=== PATIENT | male | born 1990 | race Caucasian/White ===

== ENCOUNTER 2021-05-31 15:25 | Emergency (ER) | payer OTHER, SELFPAY ==
--- NOTE | 2021-05-31 | ECG_ITS ---
Test Reason : CHEST PAIN Blood Pressure : / mmHG Vent. Rate : 059 BPM Atrial Rate : 059 BPM P-R Int : 156 ms QRS Dur : 100 ms QT Int : 404 ms P-R-T Axes : 055 048 023 degrees QTc Int : 399 ms Sinus bradycardia Otherwise normal ECG When compared with ECG of 03-OCT-2016 01:39, No significant change was found Referred By: Generic ED Physician Electronically Signed By:ISABEL SORIANO
--- NOTE | ~2021-05-31 | XR_ITS ---
EXAMINATION: XR CHEST CLINICAL INFORMATION: Chest pain. COMPARISON: Chest done on 10/02/2016. TECHNIQUE: Frontal view of the chest was obtained. FINDINGS: No significant abnormality is noted involving the heart, lungs, mediastinum, bony thorax or soft tissues. XR/XR chest 1V IMPRESSION: Unremarkable examination. Resolution of previously documented left lower lobar airspace disease and trace superimposed effusion since the prior study dated 10/02/2016.
[2021-05-31 15:32] VITALS: BP 144/82; PULSE 64; RESP 16; TEMP 36.7; O2SAT 98; BMI 30.1
[2021-05-31 16:45] LABS: MANUAL DIFF FLAG NO
[2021-05-31 16:48] LABS: Basophils Percent Auto 0.6 % (0-2); Eosinophils Absolute Auto 0.2 X10*3/uL (0.0-0.4); Eosinophils Percent Auto 3.8 % (0-4); Hematocrit 38.6 % (42-52); Hemoglobin 12.3 g/dl (14.0-18.0); Imm Gran Abs Auto 0.02 X10*3/uL (0.00-0.03); Imm Gran Pct Auto 0.4 % (0.0-0.4); Lymphocytes Absolute Auto 2.2 X10*3/uL (1.2-4.9); Mean Corpuscular HGB Conc 31.9 g/dl (31.0-36.0); Mean Corpuscular Hemoglobin 27.5 pg (27.0-33.0); Mean Corpuscular Volume 86.2 fL (80-98); Mean Platelet Volume 9.2 fL (9.4-12.4); Monocytes Absolute Auto 0.4 X10*3/uL (0.1-1.2); Monocytes Percent Auto 7.9 % (2-11); Neutrophils Percent Auto 42.3 % (45-73); Platelet Count 235 X10*3/uL (160-400); Red Blood Count 4.48 X10*6/uL (4.60-5.80); White Blood Count 4.8 X10*3/uL (4.8-10.8)
[2021-05-31 17:18] LABS: Alanine Aminotransferase 29 U/L (0-40); Albumin Level 4.3 g/dL (3.5-5.0); Alkaline Phosphatase 77 U/L (39-117); Anion Gap 11 (12-20); Aspartate Amino Transferase 25 U/L (5-37); Bilirubin Total 0.2 mg/dL (0.0-1.0); Blood Urea Nitrogen 15 mg/dL (9-16); Calcium 9.1 mg/dL (8.4-10.2); Carbon Dioxide 28 mmol/L (22-29); Chloride 104 mmol/L (96-108); Creatinine Clr Calc Pharmacy 121.6; Estimated Glomerular Filt Rate > 60; Glucose Random 106 mg/dL (60-115); Lipase 21 U/L (8-78); Sodium 139 mmol/L (135-145); Total Protein 6.8 g/dL (6.5-8.0)
[2021-05-31 17:22] LABS: Troponin-I High Sensitivity < 3.5 ng/L (<3.5-35.0)
[2021-05-31 18:00] VITALS: BP 128/86; PULSE 57; RESP 18; TEMP 36.9; O2SAT 100
--- NOTE | 2021-05-31 18:16 | ED.CHESTPAIN ---
HPI - Chest Pain General Chief Complaint: Chest Pain Stated Complaint: cp Time Seen by Provider: 05/31/21 17:23 Source: patient Mode of arrival: ambulatory History of Present Illness HPI narrative: 30-year-old male with no significant past medical history presenting to the ED complaining of intermittent substernal chest pain described as sharp / pressure with intermittent SOB x4 days. Denies symptoms at present. Denies fever, chills, cough, abdominal pain, nausea /vomiting, LE edema, recent travel, history of blood clots MD complaint: chest pain Related Data Allergies Allergy/AdvReac Type Severity Reaction Status Date / Time No Known Allergies Allergy Verified 05/31/21 15:32 [No Known Allergies*] Review of Systems Review of Systems: Constitutional: No Fever, No Chills Cardiovascular: +Chest Pain (resolved), +SOB (resolved), No Dyspnea on Exertion, No Orthopnea, No Edema Respiratory: No Cough, No Sputum, No Dyspnea Gastrointestinal: No Nausea, No Vomiting, No Diarrhea, No Abdominal pain Genitourinary: No Dysuria, No Urinary Frequency, No Hematuria, No Flank Pain Musculoskeletal: No joint pain, No Myalgias Skin: No Skin Lesions, No rash Neuro: No Weakness, No Numbness Yes all other systems are reviewed and are negative [facility] Past Medical History Attestation statement: The following information was validated with the patient. Medical History (Updated 06/01/21 @ 00:01 by Nora Trevino) No known health problems Social History Social History Advance Directives: No Advance Directives Information Provided: Yes Physical Exam Vital Signs: Vital Signs: Last Vital Signs Temp 98.4 F 05/31/21 18:00 Pulse 57 05/31/21 18:00 Resp 18 05/31/21 18:00 BP 128/86 05/31/21 18:00 Pulse Ox 100 05/31/21 18:00 Body Mass Index 30.1 Const: General: cooperative, healthy appearing and no acute distress Orientation/consciousness: patient oriented x3 Limitations: no limitations HENMT: Head: Yes normal to inspection Ears: hearing grossly normal bilaterally General nose exam: Normal external nose present Face and sinus: Yes normal facial exam Eyes: General: appearance normal, both eyes and all related structures EOM: EOMs intact bilaterally Neck: Neck: Yes normal visual inspection and Yes no meningeal signs Chest: Chest palpation & inspection: normal inspection of the chest, no crepitus and no tenderness Resp: Effort & Inspection: normal respiratory effort Auscultation: clear to auscultation bilaterally Cardio: Rate: regular rate Heart sounds: S1 normal heart sound present and S2 normal heart sound present GI: Inspection: Yes normal to inspection Skin: Rashes: no rashes Wounds: no wounds Neuro: General: patient oriented x3 and no meningeal signs Gait exam (Neuro): Normal gait present Extrem: General: Yes normal to inspection, Yes no pedal edema and Yes no calf tenderness Course Course Course Narrative: - no leukocytosis, H&H stable, labs otherwise unremarkable, troponin negative XR chest 1V IMPRESSION: Unremarkable examination. Resolution of previously documented left lower lobar airspace disease and trace superimposed effusion since the prior study dated 10/02/2016 > results discussed with patient including worrisome signs and symptoms and strict return precautions. He verbalized understanding feel safe for discharge home. Admits he has follow-up with PCP tomorrow MDM - Chest Pain MDM Narrative Medical decision making narrative: 30-year-old male with no significant past medical history presenting to the ED complaining of intermittent substernal chest pain described as sharp / pressure with intermittent SOB x4 days. On exam vital signs stable, NAD/ nontoxic, lungs CTA, no pedal edema. Concern for viral syndrome vs MSK pain vs ?PNA. R/o ACS. Symptoms atypical for PE Plan: EKG, labs, CXR, reassess Medical Records Data Attestation: I reviewed the patient's medical records. Lab Data Attestation: I reviewed the patient's lab results. Result diagrams: 05/31/21 16:38 05/31/21 16:38 Labs: Lab Results 05/31/21 05/31/21 05/31/21 Range/Units 16:38 16:38 16:38 WBC 4.8 (4.8-10.8) X10*3/uL RBC 4.48 L (4.60-5.80) X10*6/uL Hgb 12.3 L (14.0-18.0) g/dl Hct 38.6 L (42-52) % MCV 86.2 (80-98) fL MCH 27.5 (27.0-33.0) pg MCHC 31.9 (31.0-36.0) g/dl RDW 12.0 (11.0-16.0) % Plt Count 235 (160-400) X10*3/uL MPV 9.2 L (9.4-12.4) fL Immature Gran % (Auto) 0.4 (0.0-0.4) % Neut % (Auto) 42.3 L (45-73) % Lymph % (Auto) 45.0 H (20-40) % Hopkins % (Auto) 7.9 (2-11) % Eos % (Auto) 3.8 (0-4) % Baso % (Auto) 0.6 (0-2) % Lymph # (Auto) 2.2 (1.2-4.9) X10*3/uL Hopkins # (Auto) 0.4 (0.1-1.2) X10*3/uL Eos # (Auto) 0.2 (0.0-0.4) X10*3/uL Baso # (Auto) 0.0 (0.0-0.2) X10*3/uL Abs Immat Gran (auto) 0.02 (0.00-0.03) X10*3/uL Absolute Neuts (auto) 2.0 (2.0-8.3) X10*3/uL Absolute Nucleated RBC 0.000 (0.0-0.012) X10*3/uL Nucleated RBC % (auto) 0.0 (0.0-0.2) /100WBC Sodium 139 (135-145) mmol/L Potassium 4.0 (3.3-5.1) mmol/L Chloride 104 (96-108) mmol/L Carbon Dioxide 28 (22-29) mmol/L Anion Gap 11 L (12-20) BUN 15 (9-16) mg/dL Creatinine 1.01 (0.5-1.4) mg/dL Estim Creat Clear Calc 121.6 Estimated GFR > 60 Random Glucose 106 (60-115) mg/dL Calcium 9.1 (8.4-10.2) mg/dL Total Bilirubin 0.2 (0.0-1.0) mg/dL AST 25 (5-37) U/L ALT 29 (0-40) U/L Alkaline Phosphatase 77 (39-117) U/L Troponin I High Sens < 3.5 (<3.5-35.0) ng/L Total Protein 6.8 (6.5-8.0) g/dL Albumin 4.3 (3.5-5.0) g/dL Lipase 21 (8-78) U/L Discharge Plan Discharge Clinical Impression: Chest pain Patient Disposition: Home, Self-Care Instructions: Chest Pain (ED) Additional Instructions: your blood work was reassuring today in the ED Your x-ray was unremarkable It is important you to follow-up with her primary care doctor If your symptoms persist or worsen, become more constant, you feel shortness of breath, fever, chills, please return to the ED Otherwise follow-up with her doctor Referrals: Favio Dave MD [Physician] - 1 week Interventions: ED Discharge Assessment Last Done: 05/31/21 18:52 Discharge Date/Time: 05/31/21 18:53
== END 2021-05-31 18:53 | disposition home or self-care (01) ==
PROVIDERS: Emergency Provider Emergency Medicine Emergency Medical Services
DX: R07.9 Chest pain, unspecified (principal)
CPT/HCPCS: 36415; 71045; 80053; 83690; 84484; 85025; 93005; 99283

== ENCOUNTER 2024-11-05 10:54 | Outpatient (REF) | payer MEDICAID, SELFPAY ==
[2024-11-05 13:17] LABS: MANUAL DIFF FLAG NO
[2024-11-05 13:29] LABS: Basophils Percent Auto 0.9 % (0-2); Eosinophils Absolute Auto 0.3 X10*3/uL (0.0-0.4); Eosinophils Percent Auto 6.7 % (0-4); Hematocrit 42.1 % (42.0-52.0); Hemoglobin 13.3 g/dl (14.0-18.0); Imm Gran Abs Auto 0.01 X10*3/uL (0.00-0.03); Imm Gran Pct Auto 0.2 % (0.0-0.4); Lymphocytes Absolute Auto 2.3 X10*3/uL (1.2-4.9); Lymphocytes Percent Auto 49.1 % (20-40); Mean Corpuscular HGB Conc 31.6 g/dl (31.0-36.0); Mean Corpuscular Hemoglobin 27.4 pg (27.0-33.0); Mean Corpuscular Volume 86.6 fL (80.0-98.0); Mean Platelet Volume 9.8 fL (9.4-12.4); Monocytes Absolute Auto 0.4 X10*3/uL (0.1-1.2); Monocytes Percent Auto 9.3 % (2-11); Neutrophils Absolute Auto 1.6 x10*3/uL (2.0-8.3); Neutrophils Percent Auto 33.8 % (45-73); Platelet Count 243 X10*3/uL (160-400); Red Blood Count 4.86 X10*6/uL (4.60-5.80); Red Cell Distribution Width 12.1 % (11.0-16.0); White Blood Count 4.6 X10*3/uL (4.8-10.8)
[2024-11-05 14:03] LABS: Alanine Aminotransferase 37 U/L (0-40); Albumin Level 4.4 g/dL (3.5-5.0); Alkaline Phosphatase 78 U/L (39-117); Aspartate Amino Transferase 36 U/L (5-37); Bilirubin Direct 0.1 mg/dL (0.0-0.5); Bilirubin Total 0.3 mg/dL (0.0-1.0); Blood Urea Nitrogen 17 mg/dL (9-16); Estimated Glomerular Filt Rate > 60; Total Protein 7.2 g/dL (6.5-8.0)
[2024-11-06 08:40] LABS: Hepatitis A Antibody IgG REACTIVE (Nonreactive); ~Hepatitis A Antibody IgG 1.52 S/CO (0.00-0.99)
[2024-11-06 08:53] LABS: HBS Num1 547.15 mIU/mL (0-7.99); HBc Num1 0.12 S/CO (0.00-0.79); HBsAGNum1 0.53 S/CO (0.00-0.99); HIV AB/AG Nonreactive (Nonreactive); HIV Num 1 0.06 S/CO (0.00-0.99); Hepatitis B Core Antibody Nonreactive (Nonreactive); Hepatitis B Surface Antigen Negative (Negative); ~HepC Num1 0.11 S/CO (0.00-0.79); ~Hepatitis B Surface Antibody REACTIVE (Nonreactive); ~Hepatitis C Antibody Nonreactive (Nonreactive)
[2024-11-08 11:28] LABS: TS Negative Control Passed; TS Panel A 0; TS Panel B 0; TS Positive Control Passed; TSpotTB Negative (Negative)
[2024-11-08 12:22] LABS: RPR Rapid Plasma Reagin NON-REACTIVE (NON-REACTIVE)
== END 2024-11-05 10:55 | disposition home or self-care (01) ==
LOC: HO.HHCL 10:54
PROVIDERS: Visit Provider Emergency Medicine
DX: F11.20 Opioid dependence, uncomplicated (principal); Z11.59 Encounter for screening for other viral diseases; Z11.3 Encounter for screening for infections with a predominantly sexual mode of transmission
CPT/HCPCS: 36415; 80076; 82565; 84520; 85025; 86481; 86592; 86704; 86706; 86708; 86803; 87340; 87389

== ENCOUNTER 2025-01-04 10:37 | Outpatient (REF) | payer MEDICAID, SELFPAY ==
--- OUTSIDE RECORDS SUMMARY | 2025-01-04 11:51 | XMS_ITS | Encounter Summary ---
Author Organization [employer] [facility] Address [address] [place] [address] Care Team Providers Care Chairman Emeritus Name Role Phone Unavailable Primary Care Provider Unavailabl e Reason for Visit * Reason Onset Date Comments Med Refill 12/03/2024 Encounter Details Date Type Department Care Team (Late st Contact Info) Description 12/03/2024 Refill [facility] [address] [place] [address] Yarelis Dominguez RN Uncomplicated opioid dependence (CMS/HCC) Social History Tobacco Use Types Packs/Day Years Used Date Smoking Tobacco: Every Day Cigarettes Passive Smoke Exposure: Current Smokeless Tobacco: Never Alcohol Use Standard Drinks/Week Comments Defer 0 (1 standard drink = 0.6 oz pur e alcohol) Depression Answer Date Recorded Patient Health Questionnaire-9 Score 0 09/17/2024 Patient Health Questionnaire-9 Score 0 09/17/2024 Last PHQ-9: Questionnaire Data Not on file 1 Housing Stability Answer Date Recorded What is your housing situation today? I have sonia haskins 09/17/[address] you li ve. Do you have problems with any of the following? None of the above 09/17/2024 Food Insecurity Answer Date Recorded Within the past 12 months, y ou worried that your food would run out before you got money to buy more: Never True 09/17/2024 Within the past 12 months,th e food you bought just didn't last and you didn't have enough money to get more: Never True Transportation Answer Date Recorded In the past 12 months, has l ack of transportation kept you from medical appts, meetings, work or from getting things needed for daily living? No 09/17/2024 Utilities Answer Date Recorded In the past 12 months, has t he electric, gas, oil or water company threatened to shut off services in your home? No 09/17/2024 Depression Answer Date Recorded Patient Health Questionnaire-2 Score 0 09/17/2024 Internet Access Answer Date Recorded Internet Access Q1 No 09/17/2024 Internet Access Q2 I do not want or need it 08/25 Sex and Gender Information Value Date Recorded Sex Assigned at Male 09/23/2022 10:34 AM EDT Legal Sex Male 10:34 AM EDT Gender Identity Male 09/23/2022 10:34 AM EDT Sexual Orientation Straight 07/02/2024 2: 54 PM EDT documented as of this encounter Plan of Treatment Upcoming Encounters Date Type Department Care Team (Late st Contact Info) Description 01/07/2025 9:15 AM EST Office Visit [facility] [address] [place] [id number] Michael Gutiérrez MD [address] [place] [address] 01/21/2025 10:00 AM EST Clinical Support [facility] [address] [place] [address] Yarelis Dominguez, ROSEANN 01/28/2025 3:30 PM EST Office Visit [facility] [address] [place] [address] Osmar Quintana DDS [address] [place] [address] 02/08/2025 9:45 AM EDT Office Visit [facility] [address] [place] [address] TarkaAlva, OD [address] [place] [address] documented as of this encounter Visit Diagnoses Diagnosis Uncomplicated opioid dependence (CMS/HCC) Uncomplicated opioid dependence (CMS/HCC)- Primary Tobacco use disorder documented in this encounter Additional Health Concerns Assessment Noted Time PHQ-9 Depression Total Score: 0 09/17/20 24 11:23 AM EDT documented as of this encounter
--- OUTSIDE RECORDS SUMMARY | 2025-01-04 11:51 | XMS_ITS | Encounter Summary ---
Author Organization [employer] Address [address] [place] [address] [address] [place] [address] Care Team Providers Care Woodworker Name Role Phone Unavailable Primary Care Provider Unavailabl e Reason for Visit * Reason Comments Filling Encounter Details Date Type Department Care Team ([facility] st Contact Info) Description 12/07/2024 9:00 AM EST Office Visit [facility] [address] [place] [address] Osmar Quintana DDS [address] [place], [place] [id number] Dental caries (Primary Dx) Social History Tobacco Use Types Packs/Day Years [...] PM EDT documented as of this encounter Progress Notes * Osmar Quintana DDS - 12/07/2024 9:00 AM EST Patient ID: Brad Quintana is a 34 y.o. male. Time Out: Timeout Date: 12/07/24 (composite on tooth # 8 , 10), Timeout Time: 853 Location: [facility] Tooth: Maxilla, #8, and #10 Procedure: Amish Verified the above with patient, medical lab assistant, and provider. Confirmed via patient's chart, intraorally and by radiographs. Supervisor Hard Candy: not applicable Chief Complaint Patient presents with Filling Medical Hx: Vitals: There were no vitals taken for this visit. Medications, Med Hx reviewed with patient and updated in chart. Consent Obtained: The risks, benefits, indications, potential complications, and alternatives were explained to the patient and informed consent was obtained with good understanding. Treatment Provided: Dental procedures in this visit D2330 - RESIN-BASED COMPOSITE - 1 SURFACE, ANTERIOR 8 D (Completed) Service provider: Osmar Quintana DDS Billing provider: Osmar Quintana DDS D2330 - RESIN-BASED COMPOSITE - 1 SURFACE, ANTERIOR 10 D (Completed) Service provider: Osmar Quintana DDS [place] provider: Osmar Quintana DDS D9450 - CASE PRESENTATION, DETAILED AND EXTENSIVE TREATMENT PLANNING (Completed) Service provider: Osmar Quintana DDS Billing provider: Osmar Quintana DDS Diagnosis: Caries Topical: 20% Benzocaine Anesthesia: 2% Lidocaine (Xylocaine) w/ 1:100,000 epinephrine Number of Cartridges: 1 Injection Type: Buccal infiltration, Palatal infiltration, and Intrapapillary injection Confirmed profound anesthesia. Isolation: high speed suction and cotton rolls Prep: All caries removed and Preparation finalized Matrix: Tofflemire and wedge Etch: 37% Phosphoric Acid Etch Desensitizer: Gluma Liner/Base: None Ly: I-Ly Amish Material: Paradigm Composite Shade: A3 Polished. Occlusion & contacts verified. Patient satisfied with comfort and esthetics. Patient tolerated procedure well. Post-operative instructions were given. Patient departed alert, oriented, and in stable condition. NV: Cont franca Exterior Designer: Oriana Duong Dentist: Osmar Quintana DDS documented in this encounter Plan of Treatment Upcoming Encounters Date Type Department Care Team (Late st Contact Info) Description 01/07/2025 9:15 AM EST Office Visit [facility] [address] [place] [address] Michael Gutiérrez MD [address] [place] [address] 01/21/2025 10:00 AM EST Clinical Support [facility] [address] [place] [address] Yarelis Dominguez RN 01/28/2025 3:30 PM EST Office Visit [facility] [address] [place] [address] Osmar Quintana DDS [address] [place] [address] 02/08/2025 9:45 AM EDT Office Visit [facility] [address] [place] [address] Alva Mclean OD [address] [place] [address] documented as of this encounter Procedures Procedure Name Priority Date/Time Associated Diagnosis Comments 10 D RESTORATIVE - RESIN-BASED COMPOSITE RESTORATIONS - DIRECT - RESIN-BASED COMPOSITE - ONE SURFACE, ANTERIOR Routine 12/07/2024 9:00 AM EST 8 D RESTORATIVE - RESIN-BASED COMPOSITE RESTORATIONS - DIRECT - RESIN-BASED COMPOSITE - ONE SURFACE, ANTERIOR Routine 12/07/2024 9:00 AM EST ADJUNCTIVE GENERAL SERVICES - PROFESSIONAL VISITS - CASE PRESENTATION, SUBSEQUENT TO DETAILED AND EXTENSIVE TREATMENT PLANNING Routine 12/07/2024 9:00 AM EST documented in this encounter Visit Diagnoses Diagnosis Dental caries- Primary Unspecified dental caries Uncomplicated opioid dependence (CMS/HCC)- Primary Tobacco use disorder documented in this encounter Additional Health Concerns Assessment Noted Time PHQ-9 Depression Total Score: 0 09/17/20 24 11:23 AM EDT documented as of this encounter
--- OUTSIDE RECORDS SUMMARY | 2025-01-04 11:51 | XMS_ITS | Encounter Summary ---
Author Organization [facility] Address [address] [place] [address] Care Team Providers Care Sustainability Project Coordinator Name Role Phone Unavailable Primary Care Provider Unavailabl e Reason for Visit * Reason Comments OBAT Encounter Details Date Type Department Care Team (Latest Contact Info) Description 12/10/2024 10:00 AM EST Office Visit [facility] [address] [place] [address] Michael Gutiérrez MD [address] [place] [address] Uncomplicated opioid dependence (CMS/HCC) (Primary Dx) Social History Tobacco Use Types [...] as of this encounter Progress Notes * Michael Gutiérrez MD - 12/10/2024 10:30 AM EST Utox BUP, THC Reports he is doing well. Work is good. Stayed home for the holidays. Living with his girlfriend. No more ativan. 2-3 cigarettes a day. Would like to stop but not yet. Declines MAT. No craving or ADRs. Today 12/10/24 F/U for opioid use disorder Utox BUP THC Doing well. Work is good. Suboxone helping. No cravings. No ADRs. No alcohol or substance use o/t THC. Smoking 2-3 cigarettes a day. Will slowly decrease use. Declines seeing a recovery coordinator or therapist today. Objective Physical Exam Constitutional: Appearance: Normal appearance. Neurological: Mental Status: He is alert and oriented to person, place, and time. Psychiatric: Mood and Affect: Mood normal. Behavior: Behavior normal. Thought Content: Thought content normal. Assessment/Plan Uncomplicated opioid dependence (CMS/HCC) As above. By history, continues to do well. Working FT-likes his job. Declines BH/psychiatry. F/U 2 weeks. Diagnoses and all orders for this visit: Uncomplicated opioid dependence (CMS/HCC) - POCT PILAR-14 Urine Drug Screen This information has been disclosed to you from records protected by federal confidentiality rules(42 CFR Part 2). The federal rules prohibit you from making any further disclosure of information in this record that identifies a patient as having or having had a substance use disorder either directly, by reference to publicly available information, or through verification of such identificationby another person unless further disclosure is expressly permitted by the written consent of the individual whose information is being disclosed or as otherwise permitted by (see 2.3.1). The federal rules restrict any use of the information to investigate or prosecute with regard to a crime any patient with a substance use disorder, except as provided at 2.12??(5) and 2.65. documented in this encounter Plan of Treatment Upcoming Encounters Date Type Department Care Team (Late st Contact Info) Description 01/07/2025 9:15 AM EST Office Visit [facility] [address] [place] [address] Michael Gutiérrez MD [address] [place] [address] 01/21/2025 10:00 AM EST Clinical Support [facility] [address] [place] [address] Yarelis Dominguez, RN 01/28/2025 3:30 PM EST Office Visit [facility] [address] [place] [address] Osmar Quintana, DDS [address] [place] [address] 02/08/2025 9:45 AM EDT Office Visit [facility] [address] [place] [address] Alva Mclean, OD [address] [place] [address] documented as of this encounter Procedures Procedure Name Priority Date/Time Associated Diagnosis Comments POCT PILAR-14 URINE DRUG SCREEN Routine 12/10/2024 10:44 AM EST Uncomplicated opioid dependence (CMS/HCC) documented in this encounter Results * POCT PILAR-14 Urine Drug Screen (12/10/2024 10:44 AM EST) THC Positive Cocaine Screen, Urine Negative Opiate Screen, Urine Negative Methamphetamine Screen Urine Negative Amphetamine Screen, Urine Negative Benzodiazepines Screen, Urine Negative Barbiturate Screen, Urine Negative Methadone Screen, Urine Negative Buprenophine Screen, Urine Positive TCA, Urine Negative MDMA Urine Negative ng/mL Oxycodone Screen, Urine Negative Phencyclidine (PCP), Urine Negative Propoxyphene, Urine Negative Fentanyl, Urine Negative Urine Urine specimen obtained by clean catch procedure / Unknown 12/10/2024 10:44 AM EST us Michael Gutiérrez MD POINT OF CARE TEST ENTER/EDIT ORDERABLES Final Result documented in this encounter Visit Diagnoses Diagnosis Uncomplicated opioid dependence (CMS/HCC)- Primary Uncomplicated opioid dependence (CMS/HCC)- Primary Tobacco use disorder documented in this encounter Additional Health Concerns Assessment Noted Time PHQ-9 Depression Total Score: 0 09/17/20 24 11:23 AM EDT documented as of this encounter
--- OUTSIDE RECORDS SUMMARY | 2025-01-04 11:52 | XMS_ITS | Clinical Summary ---
Author Organization [employer] Address [address] [facility] [address] [place] [address] Care Team Providers Care Maternal Fetal Physician Name Role Phone Volodymyr Goode RANGE ECOLOGIST Primary Care Provider [phone] Allergies No known active allergies Medications * This document contains information received from the source organization and may not represent a complete record from that organization. gabapentin (Neurontin) 100 MG capsule Take 1 capsule by mouth every 8 (eight) hours. 10/29/20 18 Active naloxone (Narcan) 4 mg/0.1 mL nasal spray Administer 4 mg into affected nostril(s) if needed for opioid reversal. [place] 0.1 milliliter by intranasal route in 1 nostril may repeat every 2-3 minutes as needed, alternating nostrils with each dose Please fill with suboxone Active nicotine polacrilex (Nicorette) 4 MG gum Chew 4 mg if needed for smoking cessation. Chew 1 or 2 pieces of gum by oral route every 2-4 hours as needed as directed instead of smoking Active nicotine (Nicoderm, Step 1) 21 MG/24HR patch Place 1 patch on the skin 1 (one) time each day at the same time. Apply 1 patch by every day as reviewed Active ibuprofen 600 MG tabletIndicat ions:Acute pain of left knee,Quadrice ps strain, left, initial encounter Take 1 tablet as needed for pain up to TID, take with food 45 tablet 07/01/20 Active Additional Information Patient not taking.Reported on 10/25/2024 Sodium Fluoride (PreviDent 5000 Booster Plus) 1.1 % paste Apply 1 application to teeth 2 times daily. 112 g 3 07/09/20 Active Additional Information Patient not taking.Reported on 10/25/2024 Buprenorphine HCl-Naloxone HCl (Suboxone) 8-2 MG SL filmIndicatio ns:Uncomplica caroline opioid dependence (CMS/HCC) Place 1 Film under the tongue 2 times daily for 14 days. Do not start before December 24, 2024. 28 Film 12/24/19 25 025 Active Buprenorphine HCl-Naloxone HCl (Suboxone) 8-2 MG SL filmIndicatio ns:Uncomplica caroline opioid dependence (CMS/HCC) Place 1 Film under the tongue 2 times daily for 14 days. Do not start before December 10, 2024. 28 Film 12/10/19 25 025 Discontinued(Re order (will not trigger notification to Pharmacy)) Active Problems Problem Noted Date Diagnosed Date Healthcare maintenance 12/24/2024 Assessment & Plan (12/24/2024 11:35 AM EST): Declines vaccination today Will obtain routine bloodwork today- see orders Referral placed to [facility] vision center today for routine eye exam Anxiety 12/24/2024 Assessment & Plan (12/24/2024 11:36 AM EST): Screeners neg today Upon hx taking, pt reports anxiety related to his stress levels Will refer to , pt agreeble to plan Palpable mass of lower back 12/24/2024 Assessment & Plan (12/24/2024 11:36 AM EST): Lipoma vs cyst based on physical exam and history Will refer to general surgery for evaluation and referral Dental caries 10/25/2024 Encounters * This document contains information received from the source organization and may not represent a complete record from that organization. Date Type Department Care Team Description 01/03/2025 9:00 AM EST Office Visit [facility] ADULT DENTAL [address] [place] [address] Osmar Quintana DDS Partial edentulism, unspecified edentulism class (Primary Dx) 01/03/2025 Refill [facility] MEDICINE [address] [place] [address] Yarelis Dominguez, ROSEANN Uncomplicated opioid dependence (CMS/HCC) 12/24/2024 9:45 AM EST Office Visit [facility] MEDICINE [address] [place] [address] Volodymyr Goode CNP Healthcare maintenance (Primary Dx); Anxiety; Palpable mass of lower back 12/24/2024 9:30 AM EST Office Visit [facility] MEDICINE [address] [place] [phone] Michael Gutiérrez MD Opioid type dependence, continuous (CMS/HCC) (Primary Dx); Uncomplicated opioid dependence (CMS/HCC) 12/24/2024 Patient Outreach [address] [phone] [place] [facility] Supports 12/24/2024 Travel 12/17/2024 Refill [facility] MEDICINE [address] [place] [phone] Yarelis Dominguez RN Uncomplicated opioid dependence (CMS/HCC) 12/14/2024 Patient Outreach [address] [address] Volodymyr Goode CNP Pre-visit Planning (Pre-visit planning - LVM ) 12/10/2024 10:00 AM EST Office Visit [address] [address] Michael Guitérrez MD Uncomplicated opioid dependence (CMS/HCC) (Primary Dx) 12/10/2024 Travel 12/07/2024 9:00 AM EST Office Visit [facility] ADULT DENTAL [address] [place] [phone] Osmar Quintana DDS Dental caries (Primary Dx) 12/03/2024 Refill [facility] MEDICINE [address] [place] [phone] Yarelis Dominguez RN Uncomplicated opioid dependence (CMS/HCC) 11/29/[address] [address] Kayleigh Montesinos RN 11/26/2024 9:00 AM EST Office Visit [address] [address] Michael Gutiérrez MD Opioid type dependence, continuous (CMS/HCC) (Primary Dx); Uncomplicated opioid dependence (CMS/HCC); Tobacco use disorder 11/26/2024 Travel 11/25/2024 Travel 11/25/[address] [address] Russel Jorgejamin, RANGE ECOLOGIST Chart Prep 11/19/2024 11:15 AM EST Clinical Support [facility] MEDICINE [address] [place] [phone] Ольга August RN Uncomplicated opioid dependence (CMS/HCC) (Primary Dx) 11/19/2024 Refill [facility] MEDICINE [address] [place] [address] Erma Smyth RN Uncomplicated opioid dependence (CMS/HCC) 11/19/2024 Patient Outreach [address] [address] Hernandez Sousa Recovery Supports 11/19/2024 Travel 11/12/2024 11:00 AM EST Clinical Support [address] [address] Ольга August RN Uncomplicated opioid dependence (CMS/HCC) (Primary Dx) 11/12/2024 10:00 AM EST Office Visit [facility] ADULT DENTAL [address] [place] [phone] Osmar Quintana DDS Dental caries (Primary Dx) 11/12/[address] [address] Erma Smyth RN Uncomplicated opioid dependence ([facility]/HCC) 11/12/2024 Travel 11/08/2024 Refill [facility] MEDICINE [address] [place] [phone] Erma Smyth RN Uncomplicated opioid dependence (CMS/HCC) 11/05/2024 11:15 AM EST Office Visit [address] [address] Michael Gutiérrez MD Uncomplicated opioid dependence (CMS/HCC) (Primary Dx); Tobacco use disorder 11/05/2024 Travel 11/04/2024 Refill [facility] MEDICINE [address] [place] [phone] Erma Smyth RN Uncomplicated opioid dependence (CMS/HCC) 10/29/2024 10:15 AM EST Office Visit [address] [address] Michael Gutiérrez MD Uncomplicated opioid dependence (CMS/HCC) (Primary Dx); Tobacco use disorder 10/29/2024 Travel 10/25/2024 9:30 AM EST Office Visit [facility] ADULT DENTAL [address] [place] [phone] Osmar Quintana DDS Dental caries (Primary Dx) 10/15/2024 10:15 AM EST Office Visit [facility] MEDICINE [address] [place] [phone] Michael Gutiérrez MD Uncomplicated opioid dependence (CMS/HCC) (Primary Dx); Tobacco use disorder 10/15/2024 Refill [facility] MEDICINE [address] [place] [address] Erma Smyth RN Uncomplicated opioid dependence (CMS/HCC) 10/15/2024 Travel 10/08/2024 10:30 AM EST Clinical Support [facility] MEDICINE [address] [place] [phone] Néstor Garcia RN Uncomplicated opioid dependence (CMS/HCC) 10/08/2024 Refill [facility] MEDICINE [address] [place] [address] Erma Smyth RN Uncomplicated opioid dependence (CMS/HCC) 10/08/2024 Refill [facility] MEDICINE [address] [place] [phone] Néstor Garcia RN Uncomplicated opioid dependence (CMS/HCC) 10/08/2024 Travel 10/04/2024 Refill [facility] MEDICINE [address] [place] [phone] Néstor Garcia RN Uncomplicated opioid dependence ([facility]/HCC) from Last 3 Months Social History Tobacco Use Types Packs/Day Years Used Date Smoking Tobacco: Every Day Cigarettes Passive Smoke Exposure: Current Smokeless Tobacco: Never Tobacco Cessation:Ready to Q uit: Not Asked; Counseling Given: Not Answered Alcohol Use Standard Drinks/Week Comments Defer 0 [...] Orientation Straight 07/02/2024 2: 54 PM EDT Last Filed Vital Signs Vital Sign Reading Time Taken Comments Blood Pressure 137/78 12/24/2024 9:55 AM EST Pulse 76 12/24/2024 9:55 AM EST Temperature 36.8 ??C (98.2 ??F) 12/24/2024 9:55 AM ES T Respiratory Rate 18 12/24/2024 9:55 AM EST Oxygen Saturation 100% 12/24/2024 9:55 AM EST Inhaled Oxygen Concentration - - Weight 107 kg (235 lb 3.2 oz) 12/24/2024 9:55 AM EST Height 160 cm (5' 3 ) 07/01/2023 12:56 PM EDT Body Mass Index 41.66 07/01/2023 12:56 PM EDT Plan of Treatment Upcoming Encounters Date Type Department Care Team (Late st Contact Info) Description 01/07/2025 9:15 AM EST Office Visit [facility] MEDICINE [address] [place] [address] Michael Gutiérrez MD [address] [place] [address] 01/21/2025 10:00 AM EST Clinical Support [facility] MEDICINE [address] [place] [address] Yarelis Dominguez, ROSEANN 01/28/2025 3:30 PM EST Office Visit [facility] ADULT DENTAL [address] [place] [address] Osmar Quintana, DDS [address] [place] [address] 02/08/2025 9:45 AM EDT Office Visit [facility] OPTOMETRY [address] [place] [address] Alva Mclean, OD [address] [place] [address] Health Maintenance Due Date Last Done Comments Dental Prophylaxis 1988 Lipid Panel 1988 Family Planning (PISQ) 2003 Hepatitis B Vaccines (1 of 3 - 19+ 3-dose series) 2007 Pneumococcal Vaccine: Pediatrics (0 to 5 Years) and At-Risk Patients (6 to 49) Years) (1 of 2 - PCV) 2007 DTaP/Tdap/Td Vaccines (1 - Tdap) 09/06/2017 09/05/2017 Dental Oral Exam 01/10/2024 07/09/2023 Dental X-Ray: Bitewings 07/10/2024 07/09/2023 COVID-19 Vaccine (1 - 2023-2 5 season) 2024 Influenza Vaccine (#1) 2024 08/28/2020 Alcohol/Substance Use Screening 09/17/2025 09/17/2024 Depression Screening 09/17/2025 09/17/2024, 09/17/2024 SDOH Screening 09/17/2025 09/17/2024 Tobacco Screening 01/03/2026 01/03/2025 Dental X-Ray: Full Mouth 07/10/2026 07/09/2023 Zoster Vaccines (1 of 2) 2038 RSV Patients and Patients Aged 60 years or older (1 - 1-dose 75+ series) 2063 HIV Screening Completed 11/05/2024, 03/29/2022 Hepatitis C Screening Completed 11/05/2024 , 03/29/2022 HIB Vaccines Aged Out No longer eligi ble based on patient's age to complete this topic HPV Vaccines Aged Out No longer eligi ble based on patient's age to complete this topic Hepatitis A Vaccines Aged Out No long er eligible based on patient's age to complete this topic IPV Vaccines Aged Out No longer eligi ble based on patient's age to complete this topic Meningococcal Vaccine Aged Out No darell fara eligible based on patient's age to complete this topic RSV under 20 months Aged Out No longe r eligible based on patient's age to complete this topic Rotavirus Vaccines Aged Out No longer eligible based on patient's age to complete this topic Procedures Procedure Name Priority Date/Time Associated Diagnosis Comments DENTURE IMPRESSION Routine 01/03/2025 9: 00 AM EST POCT PILAR-14 URINE DRUG SCREEN Routine 12/24/2024 9:20 AM EST Opioid type dependence, continuous (CMS/HCC) POCT PILAR-14 URINE DRUG SCREEN Routine 12/10/2024 10:44 AM EST Uncomplicated opioid dependence (CMS/HCC) ADJUNCTIVE GENERAL SERVICES - PROFESSIONAL VISITS - CASE PRESENTATION, SUBSEQUENT TO DETAILED AND EXTENSIVE TREATMENT PLANNING Routine 12/07/2024 9:00 AM EST 10 D RESTORATIVE - RESIN-BASED COMPOSITE RESTORATIONS - DIRECT - RESIN-BASED COMPOSITE - ONE SURFACE, ANTERIOR Routine 12/07/2024 9:00 AM EST 8 D RESTORATIVE - RESIN-BASED COMPOSITE RESTORATIONS - DIRECT - RESIN-BASED COMPOSITE - ONE SURFACE, ANTERIOR Routine 12/07/2024 9:00 AM EST POCT PILAR-14 URINE DRUG SCREEN Routine 11/26/2024 11:54 AM EST Opioid type dependence, continuous (CMS/HCC) POCT PILAR-14 URINE DRUG SCREEN Routine 11/19/2024 10:11 AM EST Uncomplicated opioid dependence (CMS/HCC) POCT PILAR-14 URINE DRUG SCREEN Routine 11/12/2024 10:03 AM EST Uncomplicated opioid dependence (CMS/HCC) ADJUNCTIVE GENERAL SERVICES - PROFESSIONAL VISITS - CASE PRESENTATION, SUBSEQUENT TO DETAILED AND EXTENSIVE TREATMENT PLANNING Routine 11/12/2024 10:00 AM EST 4 DO RESTORATIVE - RESIN-BASED COMPOSITE RESTORATIONS - DIRECT - RESIN-BASED COMPOSITE - TWO SURFACES, POSTERIOR Routine 11/12/2024 10:00 AM EST POCT PILAR-14 URINE DRUG SCREEN Routine 11/05/2024 11:12 AM EST Uncomplicated opioid dependence (CMS/HCC) HEPATITIS B SURFACE ANTIGEN, EIA Routine 11/05/2024 10:56 AM EST Uncomplicated opioid dependence (CMS/HCC) HEPATITIS A ANTIBODY, TOTAL Routine 11/05/2024 10:56 AM EST Uncomplicated opioid dependence (CMS/HCC) HEPATITIS B SURFACE ANTIBODY, QUALITATIVE Routine 11/05/2024 10:56 AM EST Uncomplicated opioid dependence (CMS/HCC) RPR (MONITOR) W/REFL TITER Routine 11/05/2024 10:56 AM EST Uncomplicated opioid dependence (CMS/HCC) HIV 1/2 ANTIGEN/ANTIBODY, FOURTH GENERATION W/RFL Routine 11/05/2024 10:56 AM EST Uncomplicated opioid dependence (CMS/HCC) T-SPOT(R).TB Routine 11/05/2024 10:56 AM EST Uncomplicated opioid dependence (CMS/HCC) CBC WITH AUTO DIFFERENTIAL Routine 11/05/2024 10:56 AM EST Uncomplicated opioid dependence (CMS/HCC) UREA NITROGEN (BUN) Routine 11/05/2024 1 0:56 AM EST Uncomplicated opioid dependence (CMS/HCC) CREATININE, SERUM Routine 11/05/2024 10: 56 AM EST Uncomplicated opioid dependence (CMS/HCC) HEPATITIS B CORE AB TOTAL Routine 11/05/2024 10:56 AM EST Uncomplicated opioid dependence (CMS/HCC) HEPATITIS C AB W/REFL TO HCV RNA, QN, PCR Routine 11/05/2024 10:56 AM EST Uncomplicated opioid dependence (CMS/HCC) HEPATIC FUNCTION PANEL Routine 10:56 AM EST Uncomplicated opioid dependence (CMS/HCC) POCT PILAR-14 URINE DRUG SCREEN Routine 10/29/2024 10:44 AM EST Uncomplicated opioid dependence (CMS/HCC) 11 DIL RESTORATIVE - RESIN-BASED COMPOSITE RESTORATIONS - DIRECT - RESIN-BASED COMPOSITE - THREE SURFACES, ANTERIOR Routine 10/25/2024 9:30 AM EST 12 DO RESTORATIVE - RESIN-BASED COMPOSITE RESTORATIONS - DIRECT - RESIN-BASED COMPOSITE - TWO SURFACES, POSTERIOR Routine 10/25/2024 9:30 AM EST ADJUNCTIVE GENERAL SERVICES - PROFESSIONAL VISITS - CASE PRESENTATION, SUBSEQUENT TO DETAILED AND EXTENSIVE TREATMENT PLANNING Routine 10/25/2024 9:30 AM EST POCT PILAR-14 URINE DRUG SCREEN Routine 10/15/2024 9:56 AM EST Uncomplicated opioid dependence (CMS/HCC) POCT PILAR-14 URINE DRUG SCREEN Routine 10/08/2024 10:40 AM EST Uncomplicated opioid dependence (CMS/HCC) DIAGNOSTIC - DIAGNOSTIC IMAGING - INTRAORAL - COMPREHENSIVE SERIES OF RADIOGRAPHIC IMAGES Routine 07/09/2023 9:30 AM EDT COMPREHENSIVE ORAL EVALUATION - NEW OR ESTABLISHED PATIENT Routine 07/09/2023 9:30 AM EDT from Last 3 Months or Most Recently Relevant to Health Maintenance Results * POCT PILAR-14 Urine Drug Screen (12/24/2024 9:20 AM EST) Only the most recent of9 resultswithin the time period is included. THC Negative Cocaine Screen, Urine Negative Opiate Screen, Urine Negative Methamphetamine Screen Urine Negative Amphetamine Screen, Urine Negative Benzodiazepines Screen, Urine Negative Barbiturate Screen, Urine Negative Methadone Screen, Urine Negative Buprenophine Screen, Urine Positive TCA, Urine Negative MDMA Urine Negative ng/mL Oxycodone Screen, Urine Negative Phencyclidine (PCP), Urine Negative Propoxyphene, Urine Negative Fentanyl, Urine Negative Urine Urine specimen obtained by clean catch procedure / Unknown 12/24/2024 9:20 AM EST us Michael Gutiérrez MD POINT OF CARE TEST ENTER/EDIT ORDERABLES Final Result * T-SPOT??.TB (11/05/2024 10:56 AM EST) T Spot TB Negative Negative [facility] Comment:A negative test resu lt does not exclude the possibilityof exposure to or infection with Mycobacteriumtuberculosis (M. tuberculosis). Patients with recentexposure to TB infected individuals exhibiting anegative T-SPOT.TB result should be considered forretesting within 6 weeks or if other relevant clinicalsymptoms indicate. Results from T-SPOT.TB testing mustbe used in conjunction with each individual'sepidemiological history, current medical status,and results of other diagnostic evaluations.The T-SPOT.TB test is qualitative and results arereported as positive, borderline, or negative, giventhat the test controls perform as expected. In linewith the Centers for Disease Control and Prevention's2010 recommendation to report quantitative measurementsalongside the qualitative result, the laboratoryprovides spot counts for informational purposes only.The T-SPOT.TB test should not be interpreted as aquantitative test. TS PANEL A 0 [facility] TS PANEL B 0 [facility] Negative Control Passed [facility] Positive Control Passed [facility] Comment:For additional infor mation, please refer [email or web address](This link is being provided for informational/educational purposes only.)THIS TEST WAS PERFORMED AT:[employer] [place] [id number] ROBLES MD,PHD 11/05/2024 10:5 6 AM EST 11/05/2024 1:11 PM EST us Michael Gutiérrez MD LAB BLOOD ORDERABLES Final Res ult Performing Organization Address [facility] Co de Phone Number [facility] [address] [place] [phone] * Creatinine, Serum (11/05/2024 10:56 AM EST) Pathologist [facility] Creatinine, Serum 0.86 0.5 - 1.4 mg/dL [facility] Estimated Glomerular Filt Rate >60 [facility] Comment:Chronic Kidney Disea se: Estimated GFR < 60 mL/min/[id number] Kidney Disease: Estimated GFR < 15 mL/min/1.73m2 Blood 11/05/2024 10:5 6 AM EST 11/05/2024 1:11 PM EST Michael Gutiérrez MD LAB BLOOD ORDERABLES Final Res ult Performing Organization Address [facility] de Phone Number [facility] [address] [place] [phone] * (ABNORMAL) CBC auto differential (11/05/2024 10:56 AM EST) White Blood Count 4.6(L) 4.8 - 10.8 X10*3/uL [facility] Red Blood Count 4.86 4.60 - 5.80 X10*6/uL [facility] Hemoglobin 13.3(L) 14.0 - 18.0 g/dl [facility] Hematocrit 42.1 42.0 - 52.0 % [facility] Mean Corpuscular Volume 86.6 80.0 - 98.0 fL [facility] Mean Corpuscular Hemoglobin 27.4 27.0 - 33.0 pg [facility] Mean Corpuscular HGB Conc 31.6 31.0 - 36.0 g/dl [facility] Red Cell Distribution Width 12.1 11.0 - 16.0 % [facility] Platelet Count 243 160 - 400 X10*3/uL [facility] Mean Platelet Volume 9.8 9.4 - 12.4 fL [facility] Neutrophils Percent Auto 33.8(L) 45 - 73 % [facility] Imm Gran Pct Auto 0.2 0.0 - 0.4 % [facility] Lymphocytes Percent Auto 49.1(H) 20 - 40 % [facility] Monocytes Percent Auto 9.3 2 - 11 % [facility] Eosinophils Percent Auto 6.7(H) 0 - 4 % [facility] Basophils Percent Auto 0.9 0 - 2 % [facility] NRBC Pct Auto 0.0 0.0 - 0.2 /100WBC [facility] Neutrophils Absolute Auto 1.6(L) 2.0 - 8.3 x10*3/uL [facility] Imm Gran Abs Auto 0.01 0.00 - 0.03 X10*3/uL [facility] Lymphocytes Absolute Auto 2.3 1.2 - 4.9 X10*3/uL [facility] Monocytes Absolute Auto 0.4 0.1 - 1.2 X10*3/uL [facility] Eosinophils Absolute Auto 0.3 0.0 - 0.4 X10*3/uL [facility] Basophils Absolute Auto 0.0 0.0 - 0.2 X10*3/uL [facility] NRBC Abs Auto 0.000 0.0 - 0.012 X10*3/uL [facility] Blood Venous blood specimen / Unknown 11/05/2024 10:56 AM EST 11/05/2024 1:11 PM EST us Michael Gutiérrez MD LAB BLOOD ORDERABLES Final Res ult [facility] [address] [place], [place] [phone] * Hepatitis C Antibody with Reflex to HCV, RNA, Quantitative, Real-Time PCR (11/05/2024 10:56 AM EST) Hepatitis C Antibody Nonreactive Nonreactive [facility] Comment:Antibodies to HCV no t detected; does not exclude early acuteHCV infection. Blood Venous blood specimen / Unknown 11/05/2024 10:56 AM EST 11/05/2024 1:11 PM EST us Michael Gutiérrez MD LAB BLOOD ORDERABLES Final Res ult Performing Organization Address [facility] Co de Phone Number [facility] [address] [place] [phone] * Hepatitis A Antibody, Total (11/05/2024 10:56 AM EST) Hepatitis A Antibody IgG REACTIVE Nonreactive [facility] Comment:The presence of IgG anti-HAV implies past HAV infection(recent or distant) or vaccination against HAV. Blood Venous blood specimen / Unknown 11/05/2024 10:56 AM EST 11/05/2024 1:11 PM EST us Michael Gutiérrez MD LAB BLOOD ORDERABLES Final Res ult Performing Organization Address [facility] Co de Phone Number [facility] [address] [place] [phone] * Hepatitis B surface antigen, EIA (11/05/2024 10:56 AM EST) Hepatitis B Surface Ag Negative Negative [facility] Blood Venous blood specimen / Unknown 11/05/2024 10:56 AM EST 11/05/2024 1:11 PM EST us Michael Gutiérrez MD LAB BLOOD ORDERABLES Final Res ult Performing Organization Address [facility] Co de Phone Number [facility] [address] [place] [phone] * Hepatitis B Core Antibody, Total (11/05/2024 10:56 AM EST) Hepatitis B Core Antibody Nonreactive Nonreactive [facility] Blood Venous blood specimen / Unknown 11/05/2024 10:56 AM EST 11/05/2024 1:11 PM EST Michael Gutiérrez MD LAB BLOOD ORDERABLES Final Res ult Performing Organization Address [facility] Co de Phone Number [facility] [address] [place] [phone] * RPR (Monitor) with Reflex to??Titer (11/05/2024 10:56 AM EST) RPR (Monitor) w/Refl Titer NON-REACTI VE NON-REACT KEVIN [facility] Comment:THIS TEST WAS PERFOR MED AT:[id number] [place] [id number] FRASER MD Rapid Plasma Reagin Ab Titer TNP [facility] Blood Venous blood specimen / Unknown 11/05/2024 10:56 AM EST 11/05/2024 1:11 PM EST Michael Gutiérrez MD LAB BLOOD ORDERABLES Final Res ult Performing Organization Address [facility] de Phone Number [facility] [address] [place] [phone] * HIV-1/2 Antigen and Antibodies, Fourth Generation, with Reflexes (11/05/2024 10:56 AM EST) HIV AB/AG Nonreactive Nonreactive [facility] Comment:HIV-1 p24 Ag and/or HIV-1/HIV-2 Ab not detected.A test result that is nonreactive does not exclude thepossibility of exposure to or infection with HIV-1 and/orHIV-2. Nonreactive results in this assay for individualswith prior exposure to HIV-1 and/or HIV-2 may be due toantigen and antibody levels that are below the limit ofdetection of this assay.The [employer] HIV Ag/Ab Combo assay result andsupplemental assay results should be interpreted inconjunction with the patient's clinical presentation,history and other laboratory results. If the results areinconsistent with clinical evidence, additional testing issuggested to confirm the result. Blood Venous blood specimen / Unknown 11/05/2024 10:56 AM EST 11/05/2024 1:11 PM EST us Michael Gutiérrez MD LAB BLOOD ORDERABLES Final Res ult Performing Organization [facility] [facility] Co de Phone Number [facility] [address] [place] [phone] * Hepatitis B Surface Antibody, Qualitative (11/05/2024 10:56 AM EST) ~Hepatitis B Surface Antibody REACTIVE Nonreactive [facility] Comment:REACTIVE: > 11.99 mI U/mL Blood Venous blood specimen / Unknown 11/05/2024 10:56 AM EST 11/05/2024 1:11 PM EST us Michael Gutiérrez MD LAB BLOOD ORDERABLES Final Res ult Performing Organization Address [facility] de Phone Number [facility] [address] [place] [phone] * (ABNORMAL) BUN (Blood Urea Nitrogen) (11/05/2024 10:56 AM EST) Urea Nitrogen (BUN) 17(H) 9 - 16 mg/dL [facility] Blood Venous blood specimen / Unknown 11/05/2024 10:56 AM EST 11/05/2024 1:11 PM EST us Michael Gutiérrez MD LAB BLOOD ORDERABLES Final Res ult Performing Organization Address [facility] de Phone Number [facility] [address] [place] [phone] * Hepatic Function Panel (11/05/2024 10:56 AM EST) Bilirubin, Total 0.3 0.0 - 1.0 mg/dL [facility] Bilirubin, Direct 0.1 0.0 - 0.5 mg/dL [facility] Aspartate Amino Transferase 36 5 - 37 U/L [facility] Alanine Aminotransferase 37 0 - 40 U/L [facility] Total Protein 7.2 6.5 - 8.0 g/dL [facility] Albumin Level 4.4 3.5 - 5.0 g/dL [facility] Alkaline Phosphatase 78 39 - 117 U/L [facility] Blood Venous blood specimen / Unknown 11/05/2024 10:56 AM EST 11/05/2024 1:11 PM EST us Michael Gutiérrez MD LAB BLOOD ORDERABLES Final Res ult [facility] [address] [place] [phone] from Last 3 Months Insurance [facility] C3 H[place] ST[place] ADULT Care Teams Maternal Fetal Physician Relationship Specialty Start Date End Date Volodymyr Goode CNP [address] [place] [address] PCP - General Family Medicine 12/24/24
--- OUTSIDE RECORDS SUMMARY | 2025-01-04 11:52 | XMS_ITS | Encounter Summary ---
Author Organization [employer] Address 75 [facility] 7t [place] [address] Care Team Providers Care Cattery Operator Name Role Phone Volodymyr Goode CAMERON Primary Care Provider [phone] [phone] Encounter Details Date Type Department Care Team (Latest Contact Info) Description 12/24/2024 Travel Social History Tobacco Use Types Packs/Day Years [...] Description 01/07/2025 9:15 AM EST Office Visit [facility] MEDICINE [address] [place] [address] Michael Gutiérrez MD [address] [place] [address] 01/21/2025 10:00 AM EST Clinical Support [facility] MEDICINE [address] [place] [address] Yarelis Dominguez RN 01/28/2025 3:30 PM EST Office Visit [facility] ADULT DENTAL [address] [place] [address] Osmar Quintana DDS [address] [place] [address] 02/08/2025 9:45 AM EDT Office Visit [facility] OPTOMETRY [address] [place] [address] Alva Mclean, OD [address] [place] [address] documented as of this encounter Visit Diagnoses Not on filedocumented in this encounter Additional Health Concerns Assessment Noted Time PHQ-9 Depression Total Score: 0 09/17/20 24 11:23 AM EDT documented as of this encounter Care Teams Cattery Operator Relationship Specialty Start Date End Date Volodymyr Goode CNP [address] [place] [address] PCP - General Family Medicine 12/24/24 documented as of this encounter
--- OUTSIDE RECORDS SUMMARY | 2025-01-04 11:52 | XMS_ITS | Encounter Summary ---
Author Organization [employer] Address 75 [facility] 7t [place] [address] Care Team Providers Care Chemistry Laboratory Technician Name Role Phone Volodymyr Goode CAMERON Primary Care Provider [phone] [phone] Reason for Visit * Reason Comments Dentures Encounter Details Date Type Department Care Team ([facility] st Contact Info) Description 01/03/2025 9:00 AM EST Office Visit [facility] ADULT DENTAL [address] [place], [place] [phone] Osmar Quintana DDS [address] [place], [place] [phone] Partial edentulism, unspecified edentulism class (Primary Dx) Social History Tobacco Use Types [...] Progress Notes * Osmar Quintana DDS - 01/03/2025 9:00 AM EST Patient ID: Brad Quintana is a 34 y.o. male. Time Out: Timeout Date: 01/03/25, Timeout Time: 910 (time out for impression) Location: [facility] Tooth: Maxilla and Mandible Procedure: Dentures Verified the above with patient, criminal legal assistant, and provider. Confirmed via patient's chart, intraorally and by radiographs. Labor Relations Worker: not applicable Chief Complaint Patient presents with Dentures Medical Hx: Vitals: There were no vitals taken for this visit. Medications, Med Hx reviewed with patient and updated in chart. Consent Obtained: The risks, benefits, indications, potential complications, and alternatives were explained to the patient and informed consent was obtained with good understanding. Treatment Provided: Dental procedures in this visit D5750 - DENTURE IMPRESSION (Completed) Service provider: Osmar Quintana DDS Billing provider: Osmar Quintana DDS Impression taken with [place] of Maxilla and Mandible Case sent to lab to fabricate custom trays. Lab used: [facility]. Lab Due Date: 01-10-25 Patient discharged alert, oriented, and in stable condition. NV: [place] / emmanuel. Bite reg Wait Staff: Oriana Duong Dentist: Osmar Quintana DDS documented in this encounter Plan of Treatment Upcoming Encounters Date Type Department Care Team (Late st Contact Info) Description 01/07/2025 9:15 AM EST Office Visit [facility] MEDICINE [address] [place] [address] Michael Gutiérrez MD [address] [place] [address] 01/21/2025 10:00 AM EST Clinical Support [facility] MEDICINE [address] [place] [address] Yarelis Dominguez, ROSEANN 01/28/2025 3:30 PM EST Office Visit [facility] ADULT DENTAL [address] [place] [address] Osmar Quintana DDS [address] [place] [address] 02/08/2025 9:45 AM EDT Office Visit [facility] OPTOMETRY [address] [place] [address] Alva Mclean, OD [address] [place] [address] Scheduled Orders Name Type Priority Associated Diagnoses Orde r Schedule BITE REGISTRATION Dental Routine 1 Occur rences starting 01/03/2025 WAX TRY IN Dental Routine 1 Occurrences starting 01/03/2025 documented as of this encounter Procedures Procedure Name Priority Date/Time Associated Diagnosis Comments DENTURE IMPRESSION Routine 01/03/2025 9:00 AM EST documented in this encounter Visit Diagnoses Diagnosis Partial edentulism, unspecified edentulism class- Primary Uncomplicated opioid dependence (CMS/HCC)- Primary Tobacco use disorder documented in this encounter Additional Health Concerns Assessment Noted Time PHQ-9 Depression Total Score: 0 09/17/20 24 11:23 AM EDT documented as of this encounter Care Teams Chemistry Laboratory Technician Relationship Specialty Start Date End Date Volodymyr Goode CNP [address] [place] [address] PCP - General Family Medicine 12/24/24 documented as of this encounter
--- OUTSIDE RECORDS SUMMARY | 2025-01-04 11:52 | XMS_ITS | Encounter Summary ---
Author Organization [employer] [facility] Address [address] [place] [address] 7t [place] [address] Care Team Providers Care Land Use Planner Name Role Phone Volodyymr Goode CAMERON Primary Care Provider [phone] [phone] Reason for Visit * Reason Comments OBAT F/U Encounter Details Date Type Department Care Team ([facility] st Contact Info) Description 12/24/2024 9:30 AM EST Office Visit [facility] MEDICINE [address] [place] [address] Michael Gutiérrez MD [address] [place] [address] Opioid type dependence, continuous (CMS/HCC) (Primary Dx); Uncomplicated opioid dependence (CMS/HCC) Social History Tobacco [...] Progress Notes * Michael Gutiérrez MD - 12/24/2024 9:30 AM EST Patient ID: Patient here today for Opioid Dependence RV. Patient on current Suboxone dose of 16/4 mg on a 1 week schedule. Induction date: 09/17/24. LFTs done 11/05/24. Patient to be enrolled in behavioral health services with integrated therapist. JOSSY LIGHT reviewed by provider. New PCP appointment: 12/24/24 Hep A and B: immune Smoking status 08/2024: 5 cigs/day Smokerlyzer: 11/05/24 = 18, ~ < 1PPD 12/10/24 Uncomplicated opioid dependence (CMS/HCC) As above. By history, continues to do well. Working FT-likes his job. Declines BH/psychiatry. F/U 2 weeks. Today 12/24/24 Utox BUP, THC Doing well. No changes. No ADRs. No craving. No alcohol. Smoking ~ 5 cigarettes a day. Goal is still to stop. Declines Rx/NRT Work in good. Only buys marijuana from a dispensary. Objective Physical Exam Constitutional: Appearance: Normal appearance. Neurological: Mental Status: He is alert and oriented to person, place, and time. Psychiatric: Mood and Affect: Mood normal. Behavior: Behavior normal. Thought Content: Thought content normal. Assessment/Plan Uncomplicated opioid dependence (CMS/HCC) Utox BUP, THC Doing well. No changes. No ADRs. No craving. No alcohol. Smoking ~ 5 cigarettes a day. Goal is still to stop. Declines Rx/NRT Work in good. Only buys marijuana from a dispensary. As above. Continues to do well. F/U 2 weeks. Diagnoses and all orders for this visit: Opioid type dependence, continuous ([facility]) - POCT PILAR-14 Urine Drug Screen Uncomplicated opioid dependence ([facility]) This information has been disclosed to you [...] Description 01/07/2025 9:15 AM EST Office Visit [address] [address] Michael Gutiérrez MD [address] [place] [address] 01/21/2025 10:00 AM EST Clinical Support [address] [address] Yarelis Dominguez, ROSEANN 01/28/2025 3:30 PM EST Office Visit [facility] ADULT DENTAL [address] [place] [address] Osmar Quintana DDS [address] [place] [address] 02/08/2025 9:45 AM EDT Office Visit [facility] OPTOMETRY [address] [place] [address] Alva Mclean, OD [address] [place] [address] documented as of this encounter Procedures Procedure Name Priority Date/Time Associated Diagnosis Comments POCT PILAR-14 URINE DRUG SCREEN Routine 12/24/2024 9:20 AM EST Opioid type dependence, continuous (CMS/HCC) documented in this encounter Results * POCT PILAR-14 Urine Drug Screen (12/24/2024 9:20 AM EST) THC Negative Cocaine Screen, Urine Negative Opiate [...] procedure / Unknown 12/24/2024 9:20 AM EST Michael Gutiérrez MD POINT OF CARE TEST ENTER/EDIT ORDERABLES Final Result documented in this encounter Visit Diagnoses Diagnosis Opioid type dependence, continuous (CMS/HCC)- Primary Opioid type dependence, continuous Uncomplicated opioid dependence (CMS/HCC) Uncomplicated opioid dependence (CMS/HCC)- Primary Tobacco use disorder documented in this encounter Additional Health Concerns Assessment Noted Time PHQ-9 Depression Total Score: 0 09/17/20 24 11:23 AM EDT documented as of this encounter Care Teams Land Use Planner Relationship Specialty Start Date End Date Volodymyr Goode CNP [address] [place] [address] PCP - General Family Medicine 12/24/24 documented as of this encounter
--- OUTSIDE RECORDS SUMMARY | 2025-01-04 11:52 | XMS_ITS | Encounter Summary ---
Author Organization [employer] [facility] Address 75 [facility] 7t [place] [address] Care Team Providers Care Mailhouse Operator Name Role Phone Unavailable Primary Care Provider Unavailabl e Reason for Visit * Reason Onset Date Comments Med Refill 12/17/2024 Encounter Details Date Type Department Care Team (Late st Contact Info) Description 12/17/2024 Refill [facility] MEDICINE [address] [place] [address] Yarelis Dominguez RN Uncomplicated opioid dependence (CMS/HCC) [...] Description 01/07/2025 9:15 AM EST Office Visit [facility] MEDICINE [address] [place] [address] Michael Gutiérrez MD [address] [place] [address] 01/21/2025 10:00 AM EST Clinical Support [facility] MEDICINE [address] [place] [address] Yarelis Dominguez, ROSEANN 01/28/2025 3:30 PM EST Office Visit [facility] ADULT DENTAL [address] [place] [address] Osmar Quintana DDS [address] [place] [address] 02/08/2025 9:45 AM EDT Office Visit [facility] OPTOMETRY [address] [place] [address] TarkaAlva, OD [address] [place] [address] documented as of this encounter Visit Diagnoses Diagnosis Uncomplicated opioid dependence (CMS/HCC) Uncomplicated opioid dependence (CMS/HCC)- Primary Tobacco use disorder documented in this encounter Additional Health Concerns Assessment Noted Time PHQ-9 Depression Total Score: 0 09/17/20 24 11:23 AM EDT documented as of this encounter
--- OUTSIDE RECORDS SUMMARY | 2025-01-04 11:52 | XMS_ITS | Encounter Summary ---
Author Organization [employer] [facility] Address [address] [place] [address] 7 [place] [address] Care Team Providers Care Brake Lining Maker Name Role Phone Unavailable Primary Care Provider Unavailabl e Reason for Visit * Reason Comments Pre-visit Planning Pre-visit planning - LVM Encounter Details Date Type Department Care Team ([facility] st Contact Info) Description 12/14/2024 Patient Outreach [facility] MEDICINE [address] [place] [address] Volodymyr Goode CNP [address] [place] [address] Pre-visit Planning (Pre-visit planning - LVM ) Social History Tobacco Use Types Packs/Day Years [...] as of this encounter Progress Notes * Anette Schafer - 12/14/2024 9:56 AM EST CC Anette Ruiz placed outbound call to patient to complete pre-visit planning. No answer at this time. Patient name and were not confirmed. CC left voicemail requesting return call. Direct contact information provided. documented in this encounter Plan of Treatment Upcoming Encounters Date Type Department Care Team (Late st Contact Info) Description 01/07/2025 9:15 AM EST Office Visit [facility] MEDICINE [address] [place] [address] Michael Gutiérrez MD [address] [place] [address] 01/21/2025 10:00 AM EST Clinical Support [facility] MEDICINE [address] [place] [address] Yarelis Dominguez, ROSEANN 01/28/2025 3:30 PM EST Office Visit [facility] ADULT DENTAL [address] [place] [address] Osmar Quintana DDS [address] [place] [address] 02/08/2025 9:45 AM EDT Office Visit [facility] OPTOMETRY [address] [place] [address] Alva Mclean, OD [address] [place] [address] documented as of this encounter Visit Diagnoses Not on filedocumented in this encounter Additional Health Concerns Assessment Noted Time PHQ-9 Depression Total Score: 0 09/17/20 24 11:23 AM EDT documented as of this encounter
--- OUTSIDE RECORDS SUMMARY | 2025-01-04 11:52 | XMS_ITS | Encounter Summary ---
Author Organization [facility] Address [address] [place] [address] [place], [place] [address] Care Team Providers Care Health Care Legal Assistant Name Role Phone Volodymyr Goode CNP Primary Care Provider [phone] [phone] Reason for Referral * Consultation (Routine) - Closed Specialty Diagnoses / Procedures Referred By Sandy zepeda Referred To Contact Behavioral Health Diagnoses Anxiety Volodymyr Goode CNP [address] [place] [address] Phone: tel: fax: Referral ID Status Reason Start Date Expiration Date V isits Requested Visits Authorized [id number] Closed Specialty Services Required 12/24/2024 12/24/2025 1 1 * Consultation (Routine) - Closed Specialty Diagnoses / Procedures Referred By Sandy zepeda Referred To Contact Optometry Diagnoses Healthcare maintenance Volodymyr Goode CNP [address] [place] [address] Phone: tel: fax: [facility] OPTOMETRY [address] [place] [address] Phone: tel: fax: Referral ID Status Reason Start Date Expiration Date V isits Requested Visits Authorized [id number] Closed Consult and Treat 12/24/2024 12/24/2025 1 1 * Consultation (Routine) - Pending Review Specialty Diagnoses / Procedures Referred By Sandy zepeda Referred To Contact General Surgery Diagnoses Palpable mass of lower back Volodymyr Goode CNP [address] [place] [address] Phone: tel: fax: Referral ID Status Reason Start Date Expiration Date Visits Requested Visits Authorized [id number] Pending Review Specialty Services Required 12/24/2024 12/24/2025 1 1 Reason for Visit * Reason Comments New Pt Encounter Details Date Type Department Care Team (Late st Contact Info) Description 12/24/2024 9:45 AM EST Office Visit [facility] MEDICINE [address] [place] [address] Volodymyr Goode CNP [address] [place], [place] [phone] Healthcare maintenance (Primary Dx); Anxiety; Palpable mass of lower back Social History Tobacco Use Types Packs/Day Years [...] PM EDT documented as of this encounter Last Filed Vital Signs Vital Sign Reading [...] 3.2 oz) 12/24/2024 9:55 AM EST Height - - Body Mass Index 41.66 07/01/2023 12:56 PM EDT documented in this encounter Miscellaneous Notes * Assessment & Plan Note - Volodymyr Goode CNP - 12/24/2024 11:36 AM EST Associated Problem(s): Palpable mass of lower back Lipoma vs cyst based on physical exam and history Will refer to general surgery for evaluation and referral * Assessment & Plan Note - Volodymyr Goode CNP - 12/24/2024 11:36 AM EST Associated Problem(s): Anxiety Screeners neg today Upon hx taking, pt reports anxiety related to his stress levels Will refer to , pt agreeble to plan * Assessment & Plan Note - Volodymyr Goode CNP - 12/24/2024 11:35 AM EST Associated Problem(s): Healthcare maintenance Declines vaccination today Will obtain routine bloodwork today- see orders Referral placed to [facility] vision center today for routine eye exam documented in this encounter Plan of Treatment Upcoming Encounters Date Type Department Care Team (Late st Contact Info) Description 01/07/2025 9:15 AM EST Office Visit [facility] MEDICINE [address] [place] [address] Michael Gutiérrez MD [address] [place] [address] 01/21/2025 10:00 AM EST Clinical Support [facility] MEDICINE [address] [place] [address] Yarelis Dominguez RN 01/28/2025 3:30 PM EST Office Visit [facility] ADULT DENTAL [address] [place] [address] Osmar Quintana DDS [address] [place] [address] 02/08/2025 9:45 AM EDT Office Visit [facility] OPTOMETRY [address] [place] [address] Alva Mclean, OD [address] [place] [address] Scheduled Orders Name Type Priority Associated Diagnoses Orde r Schedule Lipid Panel, Standard Lab Routine Healthcare maintenance Expected: 12/24/2024 (Approximate), Expires: 12/23/2025 CBC auto differential Lab Routine Healthcare maintenance Expected: 12/24/2024 (Approximate), Expires: 12/24/2025 Hemoglobin A1c Lab Routine Healthcare maintenance Expected: 12/24/2024 (Approximate), Expires: 12/24/2025 Scheduled Referrals Name Type Priority Associated Diagnoses Orde r Schedule Referral to General Surgery Outpatient Referral Routine Palpable mass of lower back Expected: 12/24/2024 (Approximate), Expires: 12/24/2025 Referral to [facility] Eye Care Outpatient Referral Routine Healthcare maintenance Expected: 12/24/2024 (Approximate), Expires: 12/24/2025 Referral to Behavioral Health Outpatient Referral Routine Anxiety Expected: 12/24/2024 (Approximate), Expires: 12/24/2025 documented as of this encounter Visit Diagnoses Diagnosis Healthcare maintenance- Primary Anxiety Anxiety state, unspecified Palpable mass of lower back Uncomplicated opioid dependence (CMS/HCC)- Primary Tobacco use disorder documented in this encounter Additional Health Concerns Assessment Noted Time PHQ-9 Depression Total Score: 0 09/17/20 24 11:23 AM EDT documented as of this encounter Care Teams Health Care Legal Assistant Relationship Specialty Start Date End Date Volodymyr Goode CNP [address] [place] [address] PCP - General Family Medicine 12/24/24 documented as of this encounter
--- OUTSIDE RECORDS SUMMARY | 2025-01-04 11:52 | XMS_ITS | Encounter Summary ---
Author Organization [employer] Address [address] [facility] 7t [place] [address] Care Team Providers Care Theatre Professor Name Role Phone Volodymyr Goode CAMERON Primary Care Provider [phone] [phone] Reason for Visit * Reason Comments [facility] Recovery Supports Encounter Details Date Type Department Care Team ([facility] st Contact Info) Description 12/24/2024 Patient Outreach [facility] MEDICINE [address] [place] [address] [facility] Recovery Supports Social History Tobacco Use Types Packs/Day Years [...] is your housing situation today? I have soniajaimie haskins 09/17/[address] you [...] as of this encounter Progress Notes * Mono Clark - 12/24/2024 9:31 AM EST I met with Brad today. Setting: in person at [facility] Recovery Wellness Goals worked on: Physical Health/Mental Health Action taken/next steps: Offered person centered recovery support Additional comments: Participant arrive to his appointment for a follow up. wellness coach provide information pertaining to the services and weekly support group meeting and other services , resources that the center offer [facility] documented in this encounter Plan of Treatment Upcoming Encounters Date Type Department Care Team (Late st Contact Info) Description 01/07/2025 9:15 AM EST Office Visit [facility] MEDICINE [address] [place] [address] Michael Gutiérrez MD [address] [place] [address] 01/21/2025 10:00 AM EST Clinical Support [facility] MEDICINE [address] [place] [address] Yarelis Dominguez, ROSEANN 01/28/2025 3:30 PM EST Office Visit [facility] ADULT DENTAL [address] [place] [address] Osmar Quintana DDS [address] [place] [address] 02/08/2025 9:45 AM EDT Office Visit [facility] OPTOMETRY [address] [place] [address] Alva Mclean, OD [address] [place] [address] documented as of this encounter Visit Diagnoses Not on filedocumented in this encounter Additional Health Concerns Assessment Noted Time PHQ-9 Depression Total Score: 0 09/17/20 24 11:23 AM EDT documented as of this encounter Care Teams Theatre Professor Relationship Specialty Start Date End Date Volodymyr Goode CNP [address] [place] [address] PCP - General Family Medicine 12/24/24 documented as of this encounter
--- OUTSIDE RECORDS SUMMARY | 2025-01-04 11:52 | XMS_ITS | Encounter Summary ---
Author Organization [employer] [facility] Address [address] [facility] [address]t [place] [address] Care Team Providers Care Supervisor Rough End Name Role Phone Volodymyr Goode CAMERON Primary Care Provider [phone] Reason for Visit * Reason Onset Date Comments Med Refill 01/03/2025 Encounter Details Date Type Department Care Team (Late st Contact Info) Description 01/03/2025 Refill [facility] MEDICINE [address] [place] [address] Yarelis Dominguez RN Uncomplicated opioid dependence (CMS/HCC) [...] Description 01/07/2025 9:15 AM EST Office Visit [facility] MEDICINE [address] [place] [address] Michael Gutiérrez MD [address] [place] [address] 01/21/2025 10:00 AM EST Clinical Support [facility] MEDICINE [address] [place] [address] Yarelis Dominguez, ROSEANN 01/28/2025 3:30 PM EST Office Visit [facility] ADULT DENTAL [address] [place] [address] Osmar Quintana DDS [address] [place] [address] 02/08/2025 9:45 AM EDT Office Visit [facility] OPTOMETRY [address] [place] [address] Alva Mclean, OD [address] [place] [address] documented as of this encounter Visit Diagnoses Diagnosis Uncomplicated opioid dependence (CMS/HCC) Uncomplicated opioid dependence (CMS/HCC)- Primary Tobacco use disorder documented in this encounter Additional Health Concerns Assessment Noted Time PHQ-9 Depression Total Score: 0 09/17/20 24 11:23 AM EDT documented as of this encounter Care Teams Supervisor Rough End Relationship Specialty Start Date End Date Volodymyr Goode CNP [address] [place] [id number] PCP - General Family Medicine 12/24/24 documented as of this encounter
--- OUTSIDE RECORDS SUMMARY | 2025-01-04 11:52 | XMS_ITS | Encounter Summary ---
Author Organization [employer] Address [address] [facility] 7t [place] [address] Care Team Providers Care Test Data Developer Name Role Phone Unavailable Primary Care Provider Unavailabl e Encounter Details Date Type Department Care Team (Latest Contact Info) Description 12/10/2024 Travel Social History Tobacco Use Types Packs/Day [...] Office Visit [facility] MEDICINE [address] [place] [address] Michael Gutiérrez MD [address] [place] [address] 01/21/2025 10:00 AM EST Clinical Support [facility] MEDICINE [address] [place] [address] Yarelis Dominguez, ROSEANN 01/28/2025 3:30 PM EST Office Visit [facility] ADULT DENTAL [address] [place] [address] Osmar Quintana, DDS [address] [place] [address] 02/08/2025 9:45 AM EDT Office Visit [facility] OPTOMETRY [address] [place] [address] Alva Mclean, OD [address] [place] [address] documented as of this encounter Visit Diagnoses Not on filedocumented in this encounter Additional Health Concerns Assessment Noted Time PHQ-9 Depression Total Score: 0 09/17/20 24 11:23 AM EDT documented as of this encounter
[2025-01-04 13:15] LABS: MANUAL DIFF FLAG NO
[2025-01-04 13:24] LABS: Basophils Percent Auto 0.7 % (0-2); Eosinophils Absolute Auto 0.3 X10*3/uL (0.0-0.4); Eosinophils Percent Auto 4.6 % (0-4); Hematocrit 43.3 % (42.0-52.0); Hemoglobin 13.7 g/dl (14.0-18.0); Imm Gran Abs Auto 0.02 X10*3/uL (0.00-0.03); Imm Gran Pct Auto 0.4 % (0.0-0.4); Lymphocytes Absolute Auto 1.9 X10*3/uL (1.2-4.9); Lymphocytes Percent Auto 33.3 % (20-40); Mean Corpuscular HGB Conc 31.6 g/dl (31.0-36.0); Mean Corpuscular Hemoglobin 27.7 pg (27.0-33.0); Mean Corpuscular Volume 87.7 fL (80.0-98.0); Mean Platelet Volume 9.6 fL (9.4-12.4); Monocytes Absolute Auto 0.6 X10*3/uL (0.1-1.2); Monocytes Percent Auto 11.2 % (2-11); Neutrophils Absolute Auto 2.8 x10*3/uL (2.0-8.3); Neutrophils Percent Auto 49.8 % (45-73); Platelet Count 276 X10*3/uL (160-400); Red Blood Count 4.94 X10*6/uL (4.60-5.80); Red Cell Distribution Width 12.3 % (11.0-16.0); White Blood Count 5.7 X10*3/uL (4.8-10.8)
[2025-01-04 13:54] LABS: Estimated Average Glucose 100 mg/dL; Hemoglobin A1C 112.2974 umol/L; Hemoglobin A1c % 5.1 % (<6.0)
[2025-01-04 14:09] LABS: Cholesterol 138 mg/dL (<200); HDL Cholesterol 46 mg/dL (>40); LDL Cholesterol Calculated 78 mg/dL (<100); Triglycerides 73 mg/dL (<150)
== END 2025-01-04 10:38 | disposition home or self-care (01) ==
LOC: HO.HHCL 10:37
DX: Z00.00 Encounter for general adult medical examination without abnormal findings (principal)
CPT/HCPCS: 36415; 80061; 83036; 85025

== ENCOUNTER 2025-01-27 09:44 | Outpatient (AMB) | payer MEDICAID, SELFPAY ==
--- NOTE | 2025-01-27 09:46 | A.OFFVIS_ITS ---
Vital Signs 3 01/27/25 09:56 Height 5 ft 10 in Weight 236 lb BMI 33.9 BP 149/86 H Blood Pressure Location Lt brachial Position Sitting Pulse 70 Intake Visit Reasons: palpable mass of lower back Intake Note: Patient is seen in office for evaluation of a palpable mass of the lower back. Pt c/o:onset years, increase in size, painful, denies redness, discharge, swollen ref ? Obstetrician/Gynecologist Required: No Accompanied by: Self / Same As Patient Allergies No Known Allergies [No Known Allergies*] Allergy (Verified 01/27/25 09:55) HPI Comments Details: 34-year-old male patient presenting with a soft tissue mass of the lower left back 1st noted approximately 1 year ago and gradually increasing in size. He denies any significant discomfort but does feel the lesion has increased in size. He denies a previous history of similar lesions and denies a history of trauma in this location. He is requesting excision of this lesion. [facility] Medical History No known health problems Review of Systems Const All systems reviewed & are unremarkable except as noted in HPI and below Physical Exam Vital Signs: Last Vital Signs Pulse 70 01/27/25 09:56 BP 149/86 H 01/27/25 09:56 BMI result Body Mass Index 33.9 Const General: cooperative and no acute distress Nutritional Appearance: well nourished Orientation/consciousness: patient oriented x3 Limitations: no limitations HEENT Head: Yes normocephalic and Yes atraumatic Ears: hearing grossly normal bilaterally Resp Effort & Inspection: normal respiratory effort, no audible wheezes, no cough and no respiratory distress Cardio Jugular venous distension: no JVD GI Inspection: Yes normal to inspection Back/Spine/Pelvis Back/spine/pelvis image: 2 1. 1.5 cm round soft tissue mass mobile within the subcutaneous tissue most consistent with a lipoma. No overlying skin changes appreciated. Skin Other: Warm, dry, no rash Neuro General: patient oriented x3 Extrem General: Yes no clubbing, cyanosis or edema Assessment & Plan Assessment & Plan (1) Lipoma of back: Code(s): D17.1 - Benign lipomatous neoplasm of skin and subcutaneous tissue of trunk Category: Medical Plan 34-year-old male patient presenting with a soft tissue mass of the lower left back most consistent with a lipoma. He has requested excision of this lesion after discussion of the procedure, risks, and alternatives, gives his consent for the surgery. This will performed as an office procedure at his earliest convenience. Coding Level of Care Code New Pt Level 4 (01677) Diagnoses Lipoma of back D17.1
[2025-01-27 09:56] VITALS: BP 149/86; PULSE 70; BMI 33.9
--- OUTSIDE RECORDS SUMMARY | 2025-01-27 11:08 | XMS_ITS | Encounter Summary ---
Author Organization [facility] Address [address] [facility] 7t [place] [address] Care Team Providers Care Route Sales Associate Name Role Phone Volodymyr Goode CAMERON Primary Care Provider [phone] Reason for Visit * Reason Comments OBAT F/U Encounter Details Date Type Department Care Team (Latest Contact Info) Description 01/21/2025 10:00 AM EST Clinical Support [facility] MEDICINE [address] [place] [address] Yarelis Dominguez RN Opioid type dependence, continuous (CMS/HCC) (Primary Dx) Social History Tobacco Use [...] as of this encounter Progress Notes * Yarelis Dominguez RN - 01/21/2025 10:00 AM EST Patient ID: Patient here today [...] Smokerlyzer: 11/05/24 = 18, ~ < 1PPD LAST VISIT: 01/07/25 F/U for opioid use disorder Utox BUP, THC Doing well. Does not work Fridays and Saturdays. Things good at home. Work is good. No substance use or alcohol. Smokes marijuana. Still smoking ~ 5 cigarettes daily. Getting closer to working on it. Had first PCP visit 12/24/24 with ASH Rice. 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 No ADRs THIS VISIT: 01/21/2025 UTOX: Bup, THC Brad reports that the dose he is on is working well for him. He denies any withdrawal symptoms and said he has medication for his occasional constipation. He said he still has the occasional craving to use, but they are happening much less now. Part of that is staying busy, he said. He said he has been working many hours, 10-hour days, five days a week, and is making and saving a lot of money. Heworks at [employer] He said his first goal is to stay sober, and his future goals are to continue to work and provide for his family, and to buy a house in the future. PLAN: Continue dose and return to clinic in two weeks. This information has been disclosed to you [...] Care Team (Late st Contact Info) Description 01/28/2025 3:30 PM EST Office Visit [facility] ADULT DENTAL [address] [place] [address] Osmar Quintana DDS [address] [place] [address] 02/04/2025 9:30 AM EDT Clinical Support [facility] MEDICINE [address] [place] [address] Yarelis Dominguez RN 02/08/2025 9:45 AM EDT Office Visit [facility] OPTOMETRY [address] [place] [address] Alva Mclean, FANNY [address] [place] [address] documented as of this encounter Goals Goal Patient Goal Type Associated Problems Recent Progress Patient-Stated? Author To work and provide for my family, to buy a house someday and to continue to stay sober. General On track(01/21/20 10:21 AM EST) Yes Yarelis Dominguez RN documented as of this encounter Procedures Procedure Name Priority Date/Time Associated Diagnosis Comments POCT PILAR-14 URINE DRUG SCREEN Routine 01/21/2025 9:57 AM EST Opioid type dependence, continuous (CMS/HCC) documented in this encounter Results * POCT PILAR-14 Urine Drug Screen (01/21/2025 9:57 AM EST) THC Positive Cocaine Screen, Urine [...] obtained by clean catch procedure / Unknown 01/21/2025 9:57 AM EST us Michael Gutiérrez MD POINT OF CARE TEST ENTER/EDIT ORDERABLES Final Result documented in this encounter Visit Diagnoses Diagnosis Opioid type dependence, continuous (CMS/HCC)- Primary Opioid type dependence, continuous documented in this encounter Additional Health Concerns Assessment Noted Time PHQ-9 Depression Total Score: 0 09/17/20 24 11:23 AM EDT documented as of this encounter Care Teams Route Sales Associate Relationship Specialty Start Date End Date Volodymyr Goode CNP [address] [place] [address] PCP - General Family Medicine 12/24/24 documented as of this encounter
--- OUTSIDE RECORDS SUMMARY | 2025-01-27 11:08 | XMS_ITS | Encounter Summary ---
Author Organization [employer] Address [address] [facility] 7t [place] [address] Care Team Providers Care Special Education Administrator Name Role Phone Volodymyr Goode CAMERON Primary Care Provider [phone] Reason for Visit * Reason Comments Dentures Encounter Details Date Type Department Care Team ([facility] st Contact Info) Description 01/03/2025 9:00 AM EST Office Visit [facility] ADULT DENTAL [address] [place], [place] [phone] Osmar Quintana DDS [address] [place], [place] [phone] Partial edentulism, unspecified edentulism class (Primary Dx) [...] Time: 910 (time out for impression) Location: [facility] Tooth: Maxilla and Mandible Procedure: Dentures Verified the above with patient, assistant hall director, and provider. Confirmed via patient's chart, intraorally and by radiographs. Dough Cutting Machine Operator: not applicable Chief Complaint Patient presents with [...] lab to fabricate custom trays. Lab used: [facility]. Lab Due Date: 01-10-25 Patient discharged alert, oriented, and in stable condition. NV: [place] / emmanuel. Bite reg Semaphore Operator: Oriana Duong Dentist: Osmar Quintana DDS documented in this encounter Plan of Treatment Upcoming Encounters Date Type Department Care Team (Late st Contact Info) Description 01/28/2025 3:30 PM EST Office Visit [facility] ADULT DENTAL [address] [place] [address] Osmar Quintana DDS [address] [place] [address] 02/04/2025 9:30 AM EDT Clinical Support [facility] MEDICINE [address] [place] [address] Yarelis Dominguez, ROSEANN 02/08/2025 9:45 AM EDT Office Visit [facility] OPTOMETRY [address] [place], [place] [phone] Alva Mclean, OD [address] [place] [address] Scheduled Orders Name Type Priority Associated Diagnoses Orde r Schedule BITE REGISTRATION Dental Routine 1 Occur rences starting 01/03/2025 WAX TRY IN Dental Routine 1 Occurrences starting 01/03/2025 documented as of this encounter Procedures Procedure Name Priority Date/Time Associated Diagnosis Comments DENTURE IMPRESSION Routine 01/03/2025 9:00 AM EST documented in this encounter Visit Diagnoses Diagnosis Partial edentulism, unspecified edentulism class- Primary documented in this encounter Additional Health Concerns Assessment Noted Time PHQ-9 Depression Total Score: 0 09/17/20 24 11:23 AM EDT documented as of this encounter Care Teams Special Education Administrator Relationship Specialty Start Date End Date Volodymyr Goode CNP [address] [place] [address] PCP - General Family Medicine 12/24/24 documented as of this encounter
--- OUTSIDE RECORDS SUMMARY | 2025-01-27 11:08 | XMS_ITS | Encounter Summary ---
Author Organization [employer] Address [address] [facility] 7t [place] [address] Care Team Providers Care Ingot Car Operator Name Role Phone Volodymyr Goode CAMERON Primary Care Provider [phone] [phone] Encounter Details Date Type Department Care Team (Latest Contact Info) Description 01/20/2025 Travel Social History Tobacco Use Types Packs/Day [...] Description 01/28/2025 3:30 PM EST Office Visit [facility] ADULT DENTAL [address] [place] [address] Osmar Quintana DDS [address] [place] [address] 02/04/2025 9:30 AM EDT Clinical Support [facility] MEDICINE [address] [place] [address] Yarelis Dominguez, ROSEANN 02/08/2025 9:45 AM EDT Office Visit [facility] OPTOMETRY [address] [place], [place] [phone] Alva Mclean, OD [address] [place] [address] documented as of this encounter Visit Diagnoses Not on filedocumented in this encounter Additional Health Concerns Assessment Noted Time PHQ-9 Depression Total Score: 0 09/17/20 24 11:23 AM EDT documented as of this encounter Care Teams Ingot Car Operator Relationship Specialty Start Date End Date Volodymyr Goode CNP [address] [place] [address] PCP - General Family Medicine 12/24/24 documented as of this encounter
--- OUTSIDE RECORDS SUMMARY | 2025-01-27 11:08 | XMS_ITS | Encounter Summary ---
Author Organization [employer] [facility] Address [address] [facility] 7t [place] [address] Care Team Providers Care Stogie Packer Name Role Phone Volodymyr Goode CAMERON Primary Care Provider [phone] [phone] Reason for Visit * Reason Onset Date Comments Med Refill 01/03/2025 Encounter Details Date Type Department Care Team (Late st Contact Info) Description 01/03/2025 Refill [facility] MEDICINE [address] [place] [address] Yarelis Dominguez RN Uncomplicated opioid dependence (CMS/HCC) [...] is your housing situation today? I have osnia haskins 09/17/[address] you [...] Description 01/28/2025 3:30 PM EST Office Visit [facility] ADULT DENTAL [address] [place] [address] Osmar Quintana DDS [address] [place] [address] 02/04/2025 9:30 AM EDT Clinical Support [facility] MEDICINE [address] [place] [address] Yarelis Dominguez, ROSEANN 02/08/2025 9:45 AM EDT Office Visit [facility] OPTOMETRY [address] [place] [address] TarkaAlva, OD [address] [place] [address] documented as of this encounter Visit Diagnoses Diagnosis Uncomplicated opioid dependence (CMS/HCC) documented in this encounter Additional Health Concerns Assessment Noted Time PHQ-9 Depression Total Score: 0 09/17/20 24 11:23 AM EDT documented as of this encounter Care Teams Stogie Packer Relationship Specialty Start Date End Date Volodymyr Goode CNP [address] [place] [address] PCP - General Family Medicine 12/24/24 documented as of this encounter
--- OUTSIDE RECORDS SUMMARY | 2025-01-27 11:08 | XMS_ITS | Clinical Summary ---
Author Organization [employer] Address [address] [facility] [address] [place] [address] Care Team Providers Care Supervising Editor News Reel Name Role Phone Volodymyr Goode EMBEDDED SOFTWARE TEST ENGINEER Primary Care Provider [phone] Allergies No known active allergies Medications * This document contains information received from the source organization and may not represent a complete record from that organization. gabapentin (Neurontin) 100 MG capsule Take 1 capsule by mouth every 8 (eight) hours. 10/29/20 18 Active naloxone (Narcan) 4 mg/0.1 mL nasal spray Administer 4 mg into affected nostril(s) if needed for opioid reversal. [place] 0.1 milliliter by intranasal route in 1 [...] under the tongue 2 times daily for 21 days. Do not start before January 21, 2025. 42 Film 01/21/20 25 025 Active Buprenorphine HCl-Naloxone HCl (Suboxone) 8-2 MG SL filmIndicatio ns:Uncomplica caroline opioid dependence (CMS/HCC) Place 1 Film under the tongue 2 times daily for 14 days. Do not start before December 24, 2024. 28 Film 12/24/19 25 025 Discontinued(Re order (will not trigger notification to Pharmacy)) Buprenorphine HCl-Naloxone HCl (Suboxone) 8-2 MG SL filmIndicatio ns:Uncomplica caroline opioid dependence (CMS/HCC) Place 1 Film under the tongue 2 times daily for 14 days. Do not start before January 07, 2025. 28 Film 01/07/20 25 025 Discontinued(Re order (will not trigger notification to Pharmacy)) Active Problems Problem Noted Date Diagnosed Date Healthcare maintenance 12/24/2024 Assessment & Plan (12/24/2024 11:35 AM EST): Declines vaccination today Will obtain routine bloodwork today- see orders Referral placed to [facility] vision center today for routine eye [...] organization. Date Type Department Care Team Description 01/21/2025 10:00 AM EST Clinical Support [facility] MEDICINE [address] [place] [address] Yarelis Dominguez RN Opioid type dependence, continuous (CMS/HCC) (Primary Dx) 01/21/2025 Travel 01/20/2025 Travel 01/14/2025 Refill [facility] MEDICINE [address] [place] [address] Yarelis Dominguez RN Uncomplicated opioid dependence (CMS/HCC) 01/07/2025 9:15 AM EST Office Visit [address] [address] Michael Gutiérrez MD Uncomplicated opioid dependence (CMS/HCC) (Primary Dx); Tobacco use disorder 01/07/2025 Patient Outreach [facility] MEDICINE [address] [place] [address] Hernandez Sousa Recovery Supports 01/07/2025 Travel 01/06/2025 Telephone [facility] MEDICINE [address] [place] [address] Malena Angel RN 01/03/2025 9:00 AM EST Office Visit [facility] ADULT DENTAL [address] [place] [address] Osmar Quintana DDS Partial edentulism, unspecified edentulism class (Primary Dx) 01/03/2025 Refill [facility] MEDICINE [address] [place] [address] Yarelis Dominguez RN Uncomplicated opioid dependence ([facility]) 12/24/2024 9:45 AM EST Office Visit [address] [address] Volodymyr Goode CNP Healthcare maintenance (Primary Dx); Anxiety; Palpable mass of lower back 12/24/2024 9:30 AM EST Office Visit [facility] [address] [place] [address] Michael Gutiérrez MD Opioid type dependence, continuous (CMS/HCC) (Primary Dx); Uncomplicated opioid dependence (CMS/HCC) 12/24/2024 Patient Outreach [facility] MEDICINE [address] [place] [address] Mono Clark Recovery Supports 12/24/2024 Travel 12/17/2024 Refill [facility] MEDICINE [address] [place] [address] Yarelis Dominguez RN Uncomplicated opioid dependence (CMS/HCC) 12/14/2024 Patient Outreach [address] [address] Volodymyr Goode CNP Pre-visit Planning (Pre-visit planning - LVM ) 12/10/2024 10:00 AM EST Office Visit [address] [address] Michael Gutiérrez MD Uncomplicated opioid dependence (CMS/HCC) (Primary Dx) 12/10/2024 Travel 12/07/2024 9:00 AM EST Office Visit [facility] ADULT DENTAL [address] [place] [address] Osmar Quintana DDS Dental caries (Primary Dx) 12/03/[address] [address] Yarelis Dominguez, ROSEANN Uncomplicated opioid dependence (CMS/HCC) 11/29/[address] [address] Kayleigh Montesinos RN 11/26/2024 9:00 AM EST Office Visit [address] [address] Michael Gutiérrez MD Opioid type dependence, continuous (CMS/HCC) (Primary Dx); Uncomplicated opioid dependence (CMS/HCC); Tobacco use disorder 11/26/2024 Travel 11/25/2024 Travel 11/25/[address] [address] Volodymyr Goode CNP Chart Prep 11/19/2024 11:15 AM EST Clinical Support [address] [address] Ольга August, ROSEANN Uncomplicated opioid dependence (CMS/HCC) (Primary Dx) 11/19/[address] [address] Erma Smyth, ROSEANN Uncomplicated opioid dependence (CMS/HCC) 11/19/2024 Patient Outreach [address] [address] Hernandez Sousa Recovery Supports 11/19/2024 Travel 11/12/2024 11:00 AM EST Clinical Support [facility] [address] [place] [address] Ольга August RN Uncomplicated opioid dependence (CMS/HCC) (Primary Dx) 11/12/2024 10:00 AM EST Office Visit [facility] ADULT DENTAL [address] [place] [address] Osmar Quintana, EVELYNE Dental caries (Primary Dx) 11/12/2024 Refill [facility] MEDICINE [address] [place] [address] Erma Smyth RN Uncomplicated opioid dependence (CMS/HCC) 11/12/2024 Travel 11/08/2024 Refill [facility] MEDICINE [address] [place] [address] Erma Smyth RN Uncomplicated opioid dependence (CMS/HCC) 11/05/2024 11:15 AM EST Office Visit [address] [address] Michael Gutiérrez MD Uncomplicated opioid dependence (CMS/HCC) (Primary Dx); Tobacco use disorder 11/05/2024 Travel 11/04/2024 Refill [facility] MEDICINE [address] [place] [address] Erma Smyth RN Uncomplicated opioid dependence (CMS/HCC) 10/29/2024 10:15 AM EST Office Visit [address] [address] Michael Gutiérrez MD Uncomplicated opioid dependence ([facility]) (Primary Dx); Tobacco use disorder 10/29/2024 Travel from Last 3 Months Social History Tobacco [...] Description 01/28/2025 3:30 PM EST Office Visit [facility] ADULT DENTAL [address] [place], [place] [phone] Osmar Quintana, JESICAS [address] [place] [address] 02/04/2025 9:30 AM EDT Clinical Support [facility] MEDICINE [address] [place] [address] Yarelis Dominguez, ROSEANN 02/08/2025 9:45 AM EDT Office Visit [facility] OPTOMETRY [address] [place] [address] Alva Mclean, OD [address] [place] [address] Health Maintenance Due Date Last Done Comments Dental Prophylaxis 1988 Family Planning (PISQ) 2003 Hepatitis B [...] 01/03/2025 Dental X-Ray: Full Mouth 07/10/2026 07/09/2023 Lipid Panel 01/04/2030 01/04/2025 Zoster Vaccines (1 of 2) 2038 RSV [...] on patient's age to complete this topic Goals Goal Patient Goal Type Associated Problems Recent Progress Patient-Stated? Author To work and provide for my family, to buy a house someday and to continue to stay sober. General On track(01/21/20 10:21 AM EST) Yes Yarelis Dominguez RN Procedures Procedure Name Priority Date/Time Associated Diagnosis Comments POCT PILAR-14 URINE DRUG SCREEN Routine 01/21/2025 9:57 AM EST Opioid type dependence, continuous (CMS/HCC) POCT PILAR-14 URINE DRUG SCREEN Routine 01/07/2025 9:07 AM EST Uncomplicated opioid dependence (CMS/HCC) HEMOGLOBIN A1C Routine 01/04/2025 10:39 AM EST Healthcare maintenance CBC WITH AUTO DIFFERENTIAL Routine 01/04/2025 10:39 AM EST Healthcare maintenance LIPID PANEL, STANDARD Routine 01/04/2025 10:39 AM EST Healthcare maintenance DENTURE IMPRESSION Routine 01/03/2025 9: 00 AM EST POCT PILAR-14 URINE DRUG SCREEN Routine 12/24/2024 9:20 AM EST Opioid type dependence, continuous (CMS/HCC) POCT PILAR-14 URINE DRUG SCREEN Routine 12/10/2024 10:44 AM EST Uncomplicated opioid dependence (CMS/HCC) CASE PRESENTATION, DETAILED AND EXTENSIVE TREATMENT PLANNING Routine 12/07/2024 9:00 AM EST 10 D RESIN-BASED COMPOSITE - 1 SURF, ANTERIOR Routine 12/07/2024 9:00 AM EST 8 D RESIN-BASED COMPOSITE - 1 SURF, ANTERIOR Routine 12/07/2024 9:00 AM EST POCT PILAR-14 URINE DRUG SCREEN Routine 11/26/2024 11:54 AM EST Opioid type dependence, continuous (CMS/HCC) POCT PILAR-14 URINE DRUG SCREEN Routine 11/19/2024 10:11 AM EST Uncomplicated opioid dependence (CMS/HCC) POCT PILAR-14 URINE DRUG SCREEN Routine 11/12/2024 10:03 AM EST Uncomplicated opioid dependence (CMS/HCC) CASE PRESENTATION, DETAILED AND EXTENSIVE TREATMENT PLANNING Routine 11/12/2024 10:00 AM EST 4 DO RESIN-BASED COMPOSITE - 2 SURF, POSTERIOR Routine 11/12/2024 10:00 AM EST POCT [...] 10:44 AM EST Uncomplicated opioid dependence (CMS/HCC) INTRAORAL - COMPLETE SERIES OF RADIOGRAPHIC IMAGES Routine 07/09/2023 9:30 AM EDT COMPREHENSIVE ORAL EVALUATION - NEW OR ESTABLISHED PATIENT Routine 07/09/2023 9:30 AM EDT from Last 3 Months or Most Recently Relevant to Health Maintenance Results * POCT PILAR-14 Urine Drug Screen (01/21/2025 9:57 AM EST) Only the most recent of9 resultswithin the time period is included. THC Positive Cocaine Screen, Urine Negative Opiate [...] CARE TEST ENTER/EDIT ORDERABLES Final Result * (ABNORMAL) CBC auto differential (01/04/2025 10:39 AM EST) Only the most recent of2 resultswithin the time period is included. White Blood Count 5.7 4.8 - 10.8 X10*3/uL [facility] Red Blood Count 4.94 4.60 - 5.80 X10*6/uL [facility] Hemoglobin 13.7(L) 14.0 - 18.0 g/dl [facility] Hematocrit 43.3 42.0 - 52.0 % [facility] Mean Corpuscular Volume 87.7 80.0 - 98.0 fL [facility] Mean Corpuscular Hemoglobin 27.7 27.0 - 33.0 pg [facility] Mean Corpuscular HGB Conc 31.6 31.0 - 36.0 g/dl [facility] Red Cell Distribution Width 12.3 11.0 - 16.0 % [facility] Platelet Count 276 160 - 400 X10*3/uL [facility] Mean Platelet Volume 9.6 9.4 - 12.4 fL [facility] Neutrophils Percent Auto 49.8 45 - 73 % [facility] Imm Gran Pct Auto 0.4 0.0 - 0.4 % [facility] Lymphocytes Percent Auto 33.3 20 - 40 % [facility] Monocytes Percent Auto 11.2(H) 2 - 11 % [facility] Eosinophils Percent Auto 4.6(H) 0 - 4 % [facility] Basophils Percent Auto 0.7 0 - 2 % [facility] NRBC Pct Auto 0.0 0.0 - 0.2 /100WBC [facility] Neutrophils Absolute Auto 2.8 2.0 - 8.3 x10*3/uL [facility] Imm Gran Abs Auto 0.02 0.00 - 0.03 X10*3/uL [facility] Lymphocytes Absolute Auto 1.9 1.2 - 4.9 X10*3/uL [facility] Monocytes Absolute Auto 0.6 0.1 - 1.2 X10*3/uL [facility] Eosinophils Absolute Auto 0.3 0.0 - 0.4 X10*3/uL [facility] Basophils Absolute Auto 0.0 0.0 - 0.2 X10*3/uL [facility] NRBC Abs Auto 0.000 0.0 - 0.012 X10*3/uL [facility] Blood Venous blood specimen / Unknown 01/04/2025 10:39 AM EST 01/04/2025 1:12 PM EST [facility] LAB BLOOD ORDERABLES Sruthi l Result Performing Organization Address [facility]/ZIP Co de Phone Number [facility] [address] [place] [phone] * Hemoglobin A1c (01/04/2025 10:39 AM EST) Hemoglobin A1c 5.1 <6.0 % [facility] Comment:Hemoglobin A1C Refer ence Range Adults: 4.8 - 6.0 % Non diabetic: < 6.0 % Goal: < 7.0 %Additional Action Suggested: > 8.0 %Note: Hemoglobin A1c results are invalid for patients with abnormal amounts of HbF. Blood transfusions may impact the HbA1c concentration in the patient sample. Estimated Average Glucose 100 mg/dL [facility] Comment:eAG = Estimated ave rage glucose which is %A1C expressed asaverage glucose, using the formula of the F9D-NkhktymWhluhuj Glucose study (ADAG), Diabetes Care, Vol.31,#8,Jun. 2007 Blood Venous blood specimen / Unknown 01/04/2025 10:39 AM EST 01/04/2025 1:18 PM EST [facility] LAB BLOOD ORDERABLES Sruthi l Result Performing Organization Address City/[facility]/ZIP Co de Phone Number [facility] [address] [place] [phone] * Lipid Panel, Standard (01/04/2025 10:39 AM EST) Triglycerides 73 <150 mg/dL [facility] Comment:Desirable Triglyceri de: less than 150 mg/dLBorderline High Triglyceride 150-199 mg/dLHigh Triglyceride: 200-499 mg/dLVery High Triglyceride: greater than or equal to 5OO mg/dL Cholesterol 138 <200 mg/dL [facility] Comment:Desirable Cholestero l: less than 200 mg/dLBorderline High Cholesterol: 200-239 mg/dLHigh Cholesterol: greater than 239 mg/dL LDL Cholesterol Calculated 78 <100 mg/dL [facility] Comment:Desirable LDL: less than 100 mg/dLNear Optimal/Above Optimal LDL: 110- 129 mg/dLBorderline High LDL: 130-159 mg/dLHigh LDL: 160-189 mg/dLVery High LDL: greater than or equal to 190 mg/dL HDL Cholesterol 46 >40 mg/dL [facility] Comment:Desirable HDL: great er than 40 mg/dL Note: This HDL assay may give artificially low results in patients with liver disease. Blood Venous blood specimen / Unknown 01/04/2025 10:39 AM EST 01/04/2025 1:18 PM EST [facility] LAB BLOOD ORDERABLES Sruthi l Result [facility] [address] [place] [phone] * T-SPOT??.TB (11/05/2024 10:56 AM EST) T Spot TB Negative Negative [facility] Comment:A negative test resu lt [...] as aquantitative test. TS PANEL A 0 [facility] TS PANEL B 0 [facility] Negative Control Passed [facility] Positive Control Passed [facility] Comment:For additional infor parker, please refer tohttp://education.[employer]/faq/RUF835(This link is being provided for informational/educational purposes only.)THIS TEST WAS PERFORMED AT:[employer] [id number] [place] [address]IGTZXGL W. MASON,MD,PHD 11/05/2024 10:5 6 AM EST 11/05/2024 1:11 PM EST Michael Gutiérrez MD LAB BLOOD ORDERABLES Final Res ult Performing Organization Address [facility]/ZIP Co de Phone Number [facility] [address] [place] [phone] * Creatinine, Serum (11/05/2024 10:56 AM EST) Creatinine, Serum 0.86 0.5 - 1.4 mg/dL [facility] Estimated Glomerular Filt Rate >60 [facility] Comment:Chronic Kidney Disea se: Estimated GFR < 60 mL/min/1.76z5Rasvme Kidney Disease: Estimated GFR < 15 mL/min/1.73m2 Blood 11/05/2024 10:5 6 AM EST 11/05/2024 1:11 PM EST Michael Gutiérrez MD LAB BLOOD ORDERABLES Final Res ult Performing Organization Address [facility]/ZIP Co de Phone Number [facility] [address] [place] [phone] * Hepatitis C Antibody with Reflex to HCV, RNA, Quantitative, Real-Time PCR (11/05/2024 10:56 AM EST) Hepatitis C Antibody Nonreactive Nonreactive [facility] Comment:Antibodies to HCV no t detected; does not exclude early acuteHCV infection. Blood Venous blood specimen / Unknown 11/05/2024 10:56 AM EST 11/05/2024 1:11 PM EST Michael Gutiérrez MD LAB BLOOD ORDERABLES Final Res ult Performing Organization Address [facility] Co de Phone Number [facility] [address] [place] [phone] * Hepatitis A Antibody, Total (11/05/2024 10:56 AM EST) Hepatitis A Antibody IgG REACTIVE Nonreactive [facility] Comment:The presence of IgG anti-HAV implies past HAV infection(recent or distant) or vaccination against HAV. Blood Venous blood specimen / Unknown 11/05/2024 10:56 AM EST 11/05/2024 1:11 PM EST us Michael Gutiérrez MD LAB BLOOD ORDERABLES Final Res ult Performing Organization Address [facility] Co de Phone Number [facility] [address] [place] [phone] * Hepatitis B surface antigen, EIA (11/05/2024 10:56 AM EST) Hepatitis B Surface Ag Negative Negative [facility] Blood Venous blood specimen / Unknown 11/05/2024 10:56 AM EST 11/05/2024 1:11 PM EST us Michael Gutiérrez MD LAB BLOOD ORDERABLES Final Res ult Performing Organization Address [facility] Co de Phone Number [facility] [address] [place] [phone] * Hepatitis B Core Antibody, Total (11/05/2024 10:56 AM EST) Hepatitis B Core Antibody Nonreactive Nonreactive [facility] Blood Venous blood specimen / Unknown 11/05/2024 10:56 AM EST 11/05/2024 1:11 PM EST Michael Gutiérrez MD LAB BLOOD ORDERABLES Final Res ult Performing Organization Address [facility] Co de Phone Number [facility] [address] [place] [phone] * RPR (Monitor) with Reflex to??Titer (11/05/2024 10:56 AM EST) RPR (Monitor) w/Refl Titer NON-REACTI VE NON-REACT KEVIN [facility] Comment:THIS TEST WAS PERFOR MED AT:[employer] [place] [phone] FRASER MD Rapid Plasma Reagin Ab Titer TNP [facility] Blood Venous blood specimen / Unknown 11/05/2024 10:56 AM EST 11/05/2024 1:11 PM EST Michael Gutiérrez MD LAB BLOOD ORDERABLES Final Res ult Performing Organization Address [facility] Co de Phone Number [facility] [address] [place] [phone] * HIV-1/2 Antigen and Antibodies, Fourth Generation, with Reflexes (11/05/2024 10:56 AM EST) HIV AB/AG Nonreactive Nonreactive [facility] Comment:HIV-1 p24 Ag and/or HIV-1/HIV-2 Ab not detected.A test result that is nonreactive does not exclude thepossibility of exposure to or infection with HIV-1 and/orHIV-2. Nonreactive results in this assay for individualswith prior exposure to HIV-1 and/or HIV-2 may be due toantigen and antibody levels that are below the limit ofdetection of this assay.The [employer] HIV Ag/Ab Combo assay result andsupplemental assay results should be interpreted inconjunction with the patient's clinical presentation,history and other laboratory results. If the results areinconsistent with clinical evidence, additional testing issuggested to confirm the result. Blood Venous blood specimen / Unknown 11/05/2024 10:56 AM EST 11/05/2024 1:11 PM EST us Michael Gutiérrez MD LAB BLOOD ORDERABLES Final Res ult Performing Organization Address [facility] de Phone Number [facility] [address] [place] [phone] * Hepatitis B Surface Antibody, Qualitative (11/05/2024 10:56 AM EST) ~Hepatitis B Surface Antibody REACTIVE Nonreactive [facility] Comment:REACTIVE: > 11.99 mI U/mL Blood Venous blood specimen / Unknown 11/05/2024 10:56 AM EST 11/05/2024 1:11 PM EST us Michael Gutiérrez MD LAB BLOOD ORDERABLES Final Res ult Performing Organization Address [facility] de Phone Number [facility] [address] [place] [phone] * (ABNORMAL) BUN (Blood Urea Nitrogen) (11/05/2024 10:56 AM EST) Urea Nitrogen (BUN) 17(H) 9 - 16 mg/dL [facility] Blood Venous blood specimen / Unknown 11/05/2024 10:56 AM EST 11/05/2024 1:11 PM EST us Michael Gutiérrez MD LAB BLOOD ORDERABLES Final Res ult Performing Organization Address [facility] de Phone Number [facility] [address] [place] [address] [place] [phone] * Hepatic Function Panel (11/05/2024 10:56 AM EST) Bilirubin, Total 0.3 0.0 - 1.0 mg/dL [facility] Bilirubin, Direct 0.1 0.0 - 0.5 mg/dL [facility] Aspartate Amino Transferase 36 5 - 37 U/L [facility] Alanine Aminotransferase 37 0 - 40 U/L [facility] Total Protein 7.2 6.5 - 8.0 g/dL [facility] Albumin Level 4.4 3.5 - 5.0 g/dL [facility] Alkaline Phosphatase 78 39 - 117 U/L [facility] Blood Venous blood specimen / Unknown 11/05/2024 10:56 AM EST 11/05/2024 1:11 PM EST us Michael Gutiérrez MD LAB BLOOD ORDERABLES Final Res ult [facility] [address] [place] [phone] from Last 3 Months Insurance [facility] [place] AD[place] Care Teams Supervising Editor News Reel Relationship Specialty Start Date End Date Volodymyr Goode CNP [address] [place] [address] PCP - General Family Medicine 12/24/24
--- OUTSIDE RECORDS SUMMARY | 2025-01-27 11:08 | XMS_ITS | Encounter Summary ---
Author Organization [employer] Address [address] [facility] [address] [place] [address] Care Team Providers Care Emt Name Role Phone Volodymyr Goode CAMERON Primary Care Provider [phone] Encounter Details Date Type Department Care Team (Latest Contact Info) Description 01/07/2025 Travel Social History Tobacco Use Types Packs/Day [...] Description 01/28/2025 3:30 PM EST Office Visit [facility] ADULT DENTAL [address] [place] [address] Osmar Quintana DDS [address] [place] [address] 02/04/2025 9:30 AM EDT Clinical Support [facility] MEDICINE [address] [place] [address] Yarelis Doimnguez, ROSEANN 02/08/2025 9:45 AM EDT Office Visit [facility] OPTOMETRY [address] [place], [place] [phone] Alva Mclean, OD [address] [place] [address] documented as of this encounter Visit Diagnoses Not on filedocumented in this encounter Additional Health Concerns Assessment Noted Time PHQ-9 Depression Total Score: 0 09/17/20 24 11:23 AM EDT documented as of this encounter Care Teams Emt Relationship Specialty Start Date End Date Volodymyr Goode CNP [address] [place] [address] PCP - General Family Medicine 12/24/24 documented as of this encounter
--- OUTSIDE RECORDS SUMMARY | 2025-01-27 11:08 | XMS_ITS | Encounter Summary ---
Author Organization [employer] Address [address] [place] [address] Care Team Providers Care Foam Gun Operator Name Role Phone Volodymyr Goode CAMERON Primary Care Provider [phone] [phone] Encounter Details Date Type Department Care Team (Latest Contact Info) Description 01/21/2025 Travel Social History Tobacco Use Types Packs/Day [...] Description 01/28/2025 3:30 PM EST Office Visit [facility] [address] [place] [address] Osmar Quintana DDS [address] [place] [address] 02/04/2025 9:30 AM EDT Clinical Support [facility] [address] [place] [address] Yarelis Dominguez RN 02/08/2025 9:45 AM EDT Office Visit [facility] [address] [place], [place] [phone] TarkaAlva, OD [address] [place] [address] documented as of this encounter Goals Goal Patient Goal Type Associated Problems Recent Progress Patient-Stated? Author To work and provide for my family, to buy a house someday and to continue to stay sober. General On track(01/21/20 10:21 AM EST) Yes Yarelis Dominguez RN documented as of this encounter Visit Diagnoses Not on filedocumented in this encounter Additional Health Concerns Assessment Noted Time PHQ-9 Depression Total Score: 0 09/17/20 11:23 AM EDT documented as of this encounter Care Teams Foam Gun Operator Relationship Specialty Start Date End Date Volodymyr Goode CNP [address] [place] [address] PCP - General Family Medicine 12/24/24 documented as of this encounter
--- OUTSIDE RECORDS SUMMARY | 2025-01-27 11:08 | XMS_ITS | Encounter Summary ---
Author Organization [employer] Address [address] [facility] [address]t [place] [address] Care Team Providers Care Nickel Plater Name Role Phone Volodymyr Goode CAMERON Primary Care Provider [phone] Encounter Details Date Type Department Care Team (Late st Contact Info) Description 01/06/2025 Telephone [facility] [address] [place] [address] Malena Angel, RN [address] [place] [address] Social History Tobacco Use Types Packs/Day Years [...] PM EDT documented as of this encounter Miscellaneous Notes * Telephone Encounter - Malena Angel RN - 01/06/2025 9:55 AM EST T/C to pt to triage based on portal message. Pt c/o 07/03 abd pain x 2 months. Pt reports that the pain is in his stomach but he is not able to tell this nurse which part of his stomach hurts. Pt denies nausea, vomiting, diarrhea, fever, chills. Pt c/o cough productive of brown phlegm x 1 month. Pt c/o hiccups for years when he smokes. Pt states that he is not really able to eat and feels full when he takes one bite. Pt states he is not able to come in to the clinic today. Pt agrees to come to [facility] tomorrow for evaluation. documented in this encounter Plan of Treatment Upcoming Encounters Date Type Department Care Team (Late st Contact Info) Description 01/28/2025 3:30 PM EST Office Visit [facility] [address] [place] [address] Osmar Quintana DDS [address] [place] [address] 02/04/2025 9:30 AM EDT Clinical Support [facility] [address] [place] [address] Yarelis Dominguez RN 02/08/2025 9:45 AM EDT Office Visit [facility] [address] [place] [address] Alva Mclean, OD [address] [place] [address] documented as of this encounter Visit Diagnoses Not on filedocumented in this encounter Additional Health Concerns Assessment Noted Time PHQ-9 Depression Total Score: 0 09/17/20 11:23 AM EDT documented as of this encounter Care Teams Nickel Plater Relationship Specialty Start Date End Date Volodymyr Goode CNP [address] [place] [address] PCP - General Family Medicine 12/24/24 documented as of this encounter
--- OUTSIDE RECORDS SUMMARY | 2025-01-27 11:08 | XMS_ITS | Encounter Summary ---
Author Organization [employer] Address [address] [facility] [address] [place] [address] Care Team Providers Care Photographic Enlarger Operator Name Role Phone Volodymyr Goode CAMERON Primary Care Provider [phone] Reason for Visit * Reason Comments [facility] Recovery Supports Encounter Details Date Type Department Care Team ([facility] st Contact Info) Description 01/07/2025 Patient Outreach [facility] [address] [place] [address] Hernandez Sousa [address] [place] [address] Recovery Supports Social History Tobacco Use Types [...] as of this encounter Progress Notes * Hernandez Sousa - 01/07/2025 1:40 PM EST I met with Brad today. Setting: in person at [facility] Recovery Wellness Goals worked on: Social Stability Action taken/next steps: Offered person centered recovery support Additional comments: Spoke to participant, he stated he was doing well. He stated he does not have any needs at the moment. He agreed to call me if he needs assistance with anything. I will continue to offer my support. Hernandez Sousa documented in this encounter Plan of Treatment Upcoming Encounters Date Type Department Care Team (Late st Contact Info) Description 01/28/2025 3:30 PM EST Office Visit [facility] [address] [place] [address] Osmar Quintana DDS [address] [place] [address] 02/04/2025 9:30 AM EDT Clinical Support [facility] [address] [place] [address] Yarelis Dominguez, ROSEANN 02/08/2025 9:45 AM EDT Office Visit [facility] OPT[facility] [address] [place] [address] Alva Mclean, OD [address] [place] [address] documented as of this encounter Visit Diagnoses Not on filedocumented in this encounter Additional Health Concerns Assessment Noted Time PHQ-9 Depression Total Score: 0 09/17/20 24 11:23 AM EDT documented as of this encounter Care Teams Photographic Enlarger Operator Relationship Specialty Start Date End Date Volodymyr Goode CNP [address] [place] [address] PCP - General Family Medicine 12/24/24 documented as of this encounter
--- OUTSIDE RECORDS SUMMARY | 2025-01-27 11:08 | XMS_ITS | Encounter Summary ---
Author Organization [employer] [facility] Address [address] [facility] [address] [place] [address] Care Team Providers Care Water Softener Installer Name Role Phone Volodymyr Goode CAMERON Primary Care Provider [phone] Reason for Visit * Reason Onset Date Comments Med Refill 01/14/2025 Encounter Details Date Type Department Care Team (Late st Contact Info) Description 01/14/2025 Refill [facility] [address] [place] [address] Yarelis Dominguez RN Uncomplicated opioid dependence (CMS/HCC) [...] Description 01/28/2025 3:30 PM EST Office Visit [facility] [address] [place] [address] Osmar Quintana DDS [address] [place] [address] 02/04/2025 9:30 AM EDT Clinical Support [facility] [address] [place] [address] Yarelis Dominguez, ROSEANN 02/08/2025 9:45 AM EDT Office Visit [facility] [address] [place] [address] TarkaAlva, OD [address] [place] [address] documented as of this encounter Visit Diagnoses Diagnosis Uncomplicated opioid dependence (CMS/HCC) documented in this encounter Additional Health Concerns Assessment Noted Time PHQ-9 Depression Total Score: 0 09/17/20 24 11:23 AM EDT documented as of this encounter Care Teams Water Softener Installer Relationship Specialty Start Date End Date Volodymyr Goode CNP [address] [place] [address] PCP - General Family Medicine 12/24/24 documented as of this encounter
--- OUTSIDE RECORDS SUMMARY | 2025-01-27 11:08 | XMS_ITS | Encounter Summary ---
Author Organization [employer] Address [address] [facility] 7[address] [place] [address] Care Team Providers Care Hydroelectric Plant Electrician Name Role Phone Volodymyr Goode CAMERON Primary Care Provider [phone] [phone] Reason for Visit * Reason Comments OBAT F/U Encounter Details Date Type Department Care Team (Latest Contact Info) Description 01/07/2025 9:15 AM EST Office Visit [facility] [address] [place], [place] [phone] Michael Gutiérrez MD [address] [place] [address] Uncomplicated opioid dependence (CMS/HCC) (Primary Dx); Tobacco use disorder Social History Tobacco Use Types Packs/Day Years [...] Progress Notes * Michael Gutiérrez MD - 01/07/2025 9:15 AM EST Patient ID: Patient here today [...] Smokerlyzer: 11/05/24 = 18, ~ < 1PPD 12/24/24 Uncomplicated opioid dependence (CMS/HCC) Utox BUP, THC Doing well. No changes. No ADRs. No craving. No alcohol. Smoking ~ 5 cigarettes a day. Goal is still to stop. Declines Rx/NRT Work in good. Only buys marijuana from a dispensary. As above. Continues to do well. F/U 2 weeks. 01/07/25 F/U for opioid use disorder Utox BUP, THC Doing well. Does not work Fridays and Saturdays. Things good at home. Work is good. No substance use or alcohol. Smokes marijuana. Still smoking ~ 5 cigarettes daily. Getting closer to working on it. Had first PCP visit 12/24/24 with ASH Rice. Declines legal recovery specialist. No ADRs Objective Physical Exam Constitutional: Appearance: Normal appearance. Neurological: Mental Status: He is alert and oriented to person, place, and time. Psychiatric: Mood and Affect: Mood normal. Behavior: Behavior normal. Thought Content: Thought content normal. Judgment: Judgment normal. Assessment/Plan Uncomplicated opioid dependence (CMS/HCC) Utox BUP, THC Doing well. Does not work Fridays and Saturdays. Things good at home. Work is good. No substance use or alcohol. Smokes marijuana. Still smoking ~ 5 cigarettes daily. Getting closer to working on it. Had first PCP visit 12/24/24 with ASH Rice. Declines legal recovery specialist. States he will be seeing a therapist, ? [facility]. No ADRs. ----- As above. Continues to do well. States he will be seeing a therapist @ ? [facility]. F/U 2 weeks. Plan change to q3 week visits @ that time. Tobacco use disorder Pre-contemplation/contemplation. Continue to review. Diagnoses and all orders for this visit: Uncomplicated opioid dependence (CMS/HCC) Tobacco use disorder This information has been disclosed to you [...] Description 01/28/2025 3:30 PM EST Office Visit [facility] [address] [place] [address] Osmar Quintana DDS [address] [place] [address] 02/04/2025 9:30 AM EDT Clinical Support [facility] [address] [place] [address] Yarelis Dominguez RN 02/08/2025 9:45 AM EDT Office Visit [facility] [address] [place] [address] Alva Mclean, OD [address] [place] [address] documented as of this encounter Procedures Procedure Name Priority Date/Time Associated Diagnosis Comments POCT PILAR-14 URINE DRUG SCREEN Routine 01/07/2025 9:07 AM EST Uncomplicated opioid dependence ([facility]) documented in this encounter Results * POCT PILAR-14 Urine Drug Screen (01/07/2025 9:07 AM EST) THC Positive Cocaine Screen, Urine [...] obtained by clean catch procedure / Unknown 01/07/2025 9:07 AM EST Michael Gutiérrez MD POINT OF CARE TEST ENTER/EDIT ORDERABLES Final Result documented in this encounter Visit Diagnoses Diagnosis Uncomplicated opioid dependence (CMS/HCC)- Primary Tobacco use disorder documented in this encounter Additional Health Concerns Assessment Noted Time PHQ-9 Depression Total Score: 0 09/17/20 24 11:23 AM EDT documented as of this encounter Care Teams Hydroelectric Plant Electrician Relationship Specialty Start Date End Date Volodymyr Goode CNP [address] [place] [address] PCP - General Family Medicine 12/24/24 documented as of this encounter
== END 2025-01-27 10:14 | disposition home or self-care (01) ==
PROVIDERS: Visit Provider Surgery
DX: D17.1 Benign lipomatous neoplasm of skin and subcutaneous tissue of trunk (principal)
CPT/HCPCS: 99204

== ENCOUNTER → 2025-01-27 09:44 | Outpatient (BNVA) | payer MEDICAID, SELFPAY | PROVIDERS: Visit Provider Surgery | DX: D17.1 Benign lipomatous neoplasm of skin and subcutaneous tissue of trunk (principal) | CPT/HCPCS: 99202 ==

== ENCOUNTER 2025-02-11 10:29 | Outpatient (AMB) | payer MEDICAID, SELFPAY ==
--- NOTE | 2025-02-11 10:29 | A.OFFVIS_ITS ---
Vital Signs 3 02/11/25 10:52 Height 5 ft 10 in Weight 235 lb 14.314 oz BMI 33.8 Intake Visit Reasons: excision palpable mass of lower back Intake Note: Patient is seen for office procedure excision of palpable mass of the lower back. Pt c/o: here for removal of mass s/p:02/18/25 @11:30am Cdl Bulk Driver Required: No Accompanied by: Self / Same As Patient Allergies No Known Allergies [No Known Allergies*] Allergy (Verified 02/11/25 10:30) Medication List - Last Reconciled 02/11/25 by Hiren Zepeda MD No Known Home Meds HPI Comments Details: Patient returns today for excision of the left lower back lipoma. He feels well and denies any ongoing symptoms. [facility] Medical History No known health problems Physical Exam Back/Spine/Pelvis Back/spine/pelvis image: 2 1. 2 cm lipoma left lower back Office Procedures Excision Details: Preoperative diagnosis: Lipoma left lower back Postoperative diagnosis: Same Procedure: Excision of lipoma left lower back Surgeon: Hiren Zepeda MD Job Setter: None Anesthesia: Lidocaine 1% with epinephrine Indications for procedure: Painful lipoma left lower back 2 cm Operative findings: 2 cm lipoma left lower back Specimen: Lipoma left lower back Estimated blood loss: Less than 2 mL Complications: None Procedure details: Patient confirmed the site of surgery in the left lower back. After assuring informed consent, the patient was placed in a right lateral decubitus position. The skin was prepped with Betadine and draped in a sterile fashion over the left lower back. Local anesthesia was infiltrated in a transverse fashion directly over the lipoma. An incision was then made with a 15 blade and carried out through subcutaneous tissue up to the lipoma. A combination of sharp and blunt dissection was then used to dissect the lipoma from the surrounding subcutaneous tissue. This was subsequently removed and sent to pathology for further examination. Hemostasis was assured using light pressure. Dermis was reapproximated using an interrupted 4-0 Polysorb suture. Skin was then closed using a running subcuticular 4-0 Polysorb suture. Steri- Strips 2 x 2 gauze and Tegaderm were then applied. The patient tolerated the procedure well. He was discharged in stable condition. 34664-yuqtq/arms/legs 1.1-2cm Procedure code (CPT) selection complete Assessment & Plan Assessment & Plan (1) Lipoma of back: Code(s): D17.1 - Benign lipomatous neoplasm of skin and subcutaneous tissue of trunk Category: Medical Plan 34-year-old male patient presenting with a lipoma left lower back status post excision today under local anesthesia. He tolerated the procedure well and will return approximately 1 week for wound examination. Coding Level of Care Code Procedure Only Diagnoses Lipoma of back D17.1 CPT Codes Trunk/Arms/Legs - CPT: 55161-injap/arms/legs 1.1-2cm ([id number])
[2025-02-11 10:52] VITALS: BMI 33.8
== END 2025-02-11 10:53 | disposition home or self-care (01) ==
LOC: HO.HGS 10:29
PROVIDERS: Visit Provider Surgery
DX: D17.1 Benign lipomatous neoplasm of skin and subcutaneous tissue of trunk (principal)
CPT/HCPCS: 21930

== ENCOUNTER 2025-02-11 10:29 | Outpatient (REF) | payer MEDICAID, SELFPAY | END 2025-02-11 10:30 | disposition home or self-care (01) | LOC: HO.LNP 10:29 | PROVIDERS: Visit Provider Surgery | DX: D17.1 Benign lipomatous neoplasm of skin and subcutaneous tissue of trunk (principal) | CPT/HCPCS: 88304 ==

== ENCOUNTER 2025-06-19 12:49 | Emergency (ER) | payer MEDICAID, SELFPAY ==
--- NOTE | ~2025-06-19 | XR_ITS ---
CLINICAL HISTORY: pain Radiographs of the lumbar spine, 3 views Comparison: None available Findings: There is normal alignment. No fracture. The vertebral body heights are preserved. There is mild multilevel intervertebral disc space narrowing with mild endplate osteophytosis. Mild lower lumbar facet hypertrophy. The soft tissues are normal. Impression: No acute findings. Mild degenerative change. This document has been electronically signed by: Rehana Catalan MD on 06/19/2025 14:53:03
[2025-06-19 13:24] VITALS: BP 126/81; PULSE 54; RESP 16; TEMP 36.7; O2SAT 100; BMI 30.6
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
== END 2025-06-19 16:12 | disposition home or self-care (01) ==
PROVIDERS: Emergency Provider Emergency Medicine
DX: S39.012A Strain of muscle, fascia and tendon of lower back, initial encounter (principal); R26.2 Difficulty in walking, not elsewhere classified; X58.XXXA Exposure to other specified factors, initial encounter; Y93.9 Activity, unspecified; Y92.9 Unspecified place or not applicable; Y99.8 Other external cause status
CPT/HCPCS: 72100; 96372; 99283; 99284; J1885

== ENCOUNTER → 2025-06-19 13:27 | Outpatient (BNV) | payer MEDICAID, SELFPAY | PROVIDERS: Emergency Provider Emergency Medicine; Visit Provider Radiology Diagnostic Radiology | DX: M47.816 Spondylosis without myelopathy or radiculopathy, lumbar region (principal) | CPT/HCPCS: 72100 ==